=== PATIENT | female | born 1975 | race Caucasian/White ===

== ENCOUNTER → 2018-08-04 16:49 | Outpatient (CLI) | payer BC, SELFPAY ==
[2018-08-04 17:56] LABS: Erythrocyte Sedimentation Rate 3 mm/hr (0-20)
[2018-08-04 18:26] LABS: ALB/GLOB Ratio 1.1 RATIO (0.9-2.4); AST(SGOT) 16 U/L (15-37); Alanine Aminotransfer ALT/SGPT 23 U/L (13-56); Albumin, Serum 4.2 g/dL (3.2-5.0); Alkaline Phosphatase 56 U/L (45-117); Anion Gap 10 (5-15); BUN 16 mg/dL (7-18); BUN/Creat Ratio 16.7 RATIO (10-20); CRP < 2.90 mg/L (0.0-3.0); Calcium,Total 8.6 mg/dL (8.5-10.1); Chloride 104 mmol/L (98-107); Creatinine, Serum 0.96 mg/dL (0.55-1.02); EST Glomerular Filtration Rate 68 mL/min (>60); Est Glom Filt Rate - Afr Amer 82 mL/min (>60); Free T3 2.9 pg/mL (2.18-3.98); Globulin 3.9 g/dL (2.2-4.2); Glucose 86 mg/dL (74-106); Potassium 3.5 mmol/L (3.5-5.1); Protein, Total 8.1 g/dL (6.4-8.2); Rheumatoid Factor < 10.0 IU/mL (<15); Sodium Level 141 mmol/L (136-145); T4 Free Direct 0.96 ng/dL (0.76-1.46); Thyroid Stim Hormone (TSH) 2.61 uIU/mL (0.358-3.74); Vitamin D,25 Hydroxy 12.4 ng/mL (29.95-100.01)
[2018-08-04 18:29] LABS: Microalbumin,Random Urine 14.8 mg/L (NO RANGE EST.); Microalbumin:Creatinine Ratio 6.4 mg/g CRE (<30 mg/g CRE)
[2018-08-06 12:22] LABS: Thyroid Peroxidase AB 33 IU/mL (0-34)
== END ==
PROVIDERS: Family Provider Nurse Practitioner; PCP Nurse Practitioner; Referring Provider Nurse Practitioner; Visit Provider Nurse Practitioner
DX: M06.4 Inflammatory polyarthropathy (principal); R80.9 Proteinuria, unspecified; R53.83 Other fatigue
CPT/HCPCS: 36415; 80053; 82043; 82306; 82570; 84439; 84443; 84481; 85652; 86140; 86376; 86431

== ENCOUNTER → 2018-08-29 14:59 | Outpatient (CLI) | payer BC, SELFPAY ==
--- NOTE | 2018-08-29 15:04 | RAD_ITS ---
HISTORY: Injury in 2017, Pain persists at base of 5th and radiates across top of foot to the other side at times, COMPARISON: None FINDINGS: XR left foot 3 views No fracture, dislocation, or bony abnormality. Joint spaces appear preserved. The plantar arch is maintained. As visualized, soft tissues are negative. No radiopaque foreign body. RAD/Foot min 3 Views IMPRESSION: Normal exam, left foot. at 0515 Reported and signed by: Harjit Brewer MD Electronically Signed: Harjit Brewer, at 5:14 EDT Tel , Service support ,
== END ==
LOC: HPRAD 15:00
PROVIDERS: Family Provider Nurse Practitioner; PCP Nurse Practitioner; Referring Provider Nurse Practitioner; Visit Provider Nurse Practitioner
DX: M79.672 Pain in left foot (principal)
CPT/HCPCS: 73630

== ENCOUNTER → 2018-10-17 16:58 | Outpatient (CLI) | payer BC, SELFPAY ==
--- NOTE | 2018-10-17 17:01 | RAD_ITS ---
STUDY: X-RAY - RIGHT SHOULDER REASON FOR EXAM: Female, 43 years old. Right shoulder pain following performing CPR TECHNIQUE: 4 view(s) of the shoulder. COMPARISON: None. FINDINGS: Normal glenohumeral articulation. There is degenerative arthrosis of the acromioclavicular joint without inferior osseous spur formation. Normal acromion. Normal humeral head and visualized proximal humerus. The soft tissue structures are unremarkable. Normal visualized pulmonary apex. RAD/Shoulder min 2 Views IMPRESSION: No fracture or malalignment. Acromioclavicular joint arthrosis. Electronically Signed: Gerald Brown MD at 23:40 EDT , Service support ,
== END ==
LOC: MTRAD 17:00
PROVIDERS: Family Provider Nurse Practitioner; PCP Nurse Practitioner; Referring Provider Nurse Practitioner; Visit Provider Nurse Practitioner
DX: M25.511 Pain in right shoulder (principal)
CPT/HCPCS: 73030

== ENCOUNTER 2019-01-08 20:45 | Emergency (ER) | payer BC, SELFPAY ==
[2019-01-08 20:46] VITALS: BP 159/89; PULSE 109; RESP 18; TEMP 36.6; O2SAT 99; BMI 32.2
--- NOTE | 2019-01-08 21:39 | RAD_ITS ---
STUDY: X-RAY - RIGHT KNEE REASON FOR EXAM: Female, 43 years old. Post traumatic pain TECHNIQUE: 4 view(s) of the knee. COMPARISON: None. FINDINGS: Normal visualized distal femur. Normal visualized proximal tibia and fibula. Normal proximal tibiofibular articulation. Normal medial femorotibial compartment. Normal lateral femorotibial compartment. Normal patellofemoral articulation. The soft tissue structures are unremarkable. RAD/Knee 4 or More Views IMPRESSION: Normal x-ray examination of the knee. Electronically Signed: Khoi Jenkins MD at 22:10 EDT , Service support ,
--- NOTE | 2019-01-08 21:39 | RAD_ITS ---
STUDY: X-RAY - RIGHT TIBIA AND FIBULA REASON FOR EXAM: Female, 43 years old. Trauma TECHNIQUE: 2 view(s) of the tibia and fibula were obtained. COMPARISON: None. FINDINGS: Normal visualized tibia. Normal visualized fibula. The soft tissue structures are unremarkable. RAD/Tibia & Fibula 2 Views IMPRESSION: Normal x-ray examination of the tibia and fibula. Electronically Signed: Khoi Jenkins MD at 22:11 EDT , Service support ,
--- NOTE | 2019-01-08 21:39 | RAD_ITS ---
STUDY: X-RAY - RIGHT ANKLE REASON FOR EXAM: Female, 43 years old. Posttraumatic pain TECHNIQUE: 3 view(s) of the ankle. COMPARISON: None. FINDINGS: Normal visualized distal tibia and fibula. Normal medial and lateral malleoli. Normal tibiotalar articulation and ankle mortise. Normal visualized talus and calcaneus. The visualized subtalar, talonavicular, calcaneocuboid and tarsal articulations are normal. Soft tissue swelling overlying the lateral malleolus RAD/Ankle min 3 Views IMPRESSION: Lateral malleolus sprain. No evidence for acute fracture or dislocation. Electronically Signed: Khoi Jenkins MD at 22:09 EDT , Service support ,
--- NOTE | 2019-01-08 21:39 | RAD_ITS ---
STUDY: X-RAY - RIGHT FOOT CLINICAL: Female, 43 years old. Trauma TECHNIQUE: 3 view(s) of the foot. COMPARISON: None. FINDINGS: Normal talus, calcaneus, and tarsal bones. Normal visualized subtalar, talonavicular, calcaneocuboid, tarsal and tarsometatarsal articulations. Normal metatarsi. Normal metatarsophalangeal joint of the great toe. Normal tibial and fibular sesamoid bones. Normal interphalangeal joint of the great toe. Normal phalanges of the great toe. Normal second through fifth metatarsophalangeal joints. Normal interphalangeal joints and phalanges of the lesser toes. The soft tissue structures are unremarkable. RAD/Foot min 3 Views IMPRESSION: Normal x-ray examination of the foot. Electronically Signed: Khoi Jenkins MD at 22:31 EDT , Service support ,
--- NOTE | 2019-01-08 21:40 | ED.VISSUMM ---
- ER Visit Summary Date of Service: 01/08/19 Chief Complaint: Fall History of Present Illness: The patient is a 43 F presenting after fall. She states her [place] was chasing a rabbit. The dog ran into her while running. She fell. She did not hit her head or lose consciousness. She complains of pain below her right knee. She was able to ambulate with pain. She has taken Tylenol at home. She denies other complaints. Physical Examination: Vitals are stable. Patient is afebrile. Alert no acute distress. HEENT exam is unremarkable. Neck is nontender Lungs are clear and equal bilaterally. Heart is regular rate and rhythm. Abdomen is soft nontender nondistended. Extremities right lateral ankle tenderness, right lateral foot tenderness, right tib-fib tenderness. Right knee active full range of motion. Quadricep mechanism intact. Normal pulses. Skin is warm and dry. No focal neurologic deficit. Remainder of exam is unremarkable. Emergency Department Course and Treatment: Patient was given [place] x1. X-ray right foot, ankle, tib-fib, knee show no acute process. Patient is given a boot orthosis and crutches. She is advised to ice and elevate. She is given prescription for Naprosyn. Advised to follow up with primary care physician. Advised return to ED for worsening complaints. Disposition: Discharge home Impression: Right ankle sprain This note was generated with [employer] dictation software. It may contain incorrect words, spelling, and punctuation that were not noted in review of the chart prior to signing ED Disposition - Plan for ED Patient: Instructions: Sprain, Ankle, with X-Ray Prescriptions: Naproxen [Naprosyn] 500 mg PO BID PRN #20 tab Prescription Printed Referrals: Megan Moss NP-C [Primary Care Provider] -
--- NOTE | 2019-01-08 22:42 | ED.DEP ---
ED Disposition - Plan for ED Patient: Instructions: Sprain, Ankle, with X-Ray Prescriptions: Naproxen [Naprosyn] 500 mg PO BID PRN #20 tablet Referrals: Megan Moss NP-C [Primary Care Provider] -
[2019-01-08 23:16] VITALS: BP 117/76; PULSE 82; RESP 16; O2SAT 98
== END 2019-01-08 23:19 | disposition home or self-care (01) ==
PROVIDERS: Emergency Provider Emergency Medicine; Family Provider Nurse Practitioner; PCP Nurse Practitioner
DX: S93.401A Sprain of unspecified ligament of right ankle, initial encounter (principal); W54.1XXA Struck by dog, initial encounter; Y93.89 Activity, other specified; Y92.007 Garden or yard of unspecified non-institutional (private) residence as the place of occurrence of the external cause; Y99.8 Other external cause status
CPT/HCPCS: 73564; 73590; 73610; 73630; 99284

== ENCOUNTER → 2019-01-27 | Outpatient (CLI) | payer BC, SELFPAY ==
[2019-01-27 14:08] VITALS: BMI 32.2
--- NOTE | 2019-01-27 14:17 | RAD_ITS ---
STUDY: X-RAY - RIGHT KNEE REASON FOR EXAM: Knee pain, fall last week. TECHNIQUE: 4 view(s) of the knee. COMPARISON: Radiographs 01/08/2019. FINDINGS: Normal visualized distal femur. Normal visualized proximal tibia and fibula. Normal proximal tibiofibular articulation. Normal medial femorotibial compartment. Normal lateral femorotibial compartment. Normal patellofemoral articulation. The soft tissue structures are unremarkable. RAD/Knee 4 or More Views IMPRESSION: Normal x-ray examination of the right knee. Electronically Signed: Jhoan Gonzalez MD at 15:06 EDT Tel , Service support ,
--- NOTE | 2019-01-27 14:17 | RAD_ITS ---
STUDY: X-RAY - RIGHT ANKLE REASON FOR EXAM: Ankle pain. TECHNIQUE: 3 view(s) of the ankle. COMPARISON: Radiographs 01/08/2019. FINDINGS: Normal visualized distal tibia and fibula. There is a small well-defined ossicle at the distal aspect of the medial malleolus as on the prior study. Normal tibiotalar articulation and ankle mortise. Normal visualized talus and calcaneus. The visualized subtalar, talonavicular, calcaneocuboid and tarsal articulations are normal. There is decreased soft tissue swelling overlying the lateral malleolus. RAD/Ankle min 3 Views IMPRESSION: Small ossicle at the distal aspect of the medial malleolus without interval change. Decreased soft tissue swelling. Electronically Signed: Jhoan Gonzalez MD at 15:04 EDT Tel , Service support ,
== END | disposition home or self-care (01) ==
LOC: HPRAD 14:16
PROVIDERS: Family Provider Nurse Practitioner; PCP Nurse Practitioner; Referring Provider Orthopaedic Surgery; Visit Provider Orthopaedic Surgery
DX: S89.91XA Unspecified injury of right lower leg, initial encounter (principal); S99.911A Unspecified injury of right ankle, initial encounter
CPT/HCPCS: 73564; 73610

== ENCOUNTER → 2019-04-02 | Outpatient (CLI) | payer BC, SELFPAY ==
[2019-03-06 14:16] VITALS: BMI 32.2
--- NOTE | 2019-04-02 16:25 | MRI_ITS ---
STUDY: MRI RIGHT KNEE REASON FOR EXAM: Female, 43 years old. c/o lateral R knee pain after twisting injury TECHNIQUE: Standardized fat and water weighted pulse sequences were obtained in all 3 orthogonal planes. COMPARISON: None. FINDINGS: No marrow edema is seen. No occult fracture visualized. No osteochondral defect. Normal medial meniscus. Normal hyaline cartilage of the medial femorotibial compartment. Normal medial femoral condyle and tibial plateau. Normal medial collateral ligamentous complex (MCL). Normal distal semimembranosus, gracilis and semitendinosus tendons. Normal lateral meniscus. Normal hyaline cartilage of the lateral femorotibial compartment. Normal lateral femoral condyle and tibial plateau. Normal proximal tibiofibular articulation. The lateral collateral ligament is moderately thickened and demonstrates some heterogeneous signal without edematous signal indicating remote or old sprain injury without a complete tear. Normal popliteus tendon. Normal biceps femoris tendon. Normal anterior cruciate ligament (ACL). Normal posterior cruciate ligament (PCL). Normal congruent patellofemoral articulation. Normal hyaline cartilage of the patellofemoral compartment. Normal medial and lateral patellar retinaculum. Normal quadriceps tendon. Normal patellar tendon. Normal Hoffa's fat pad. There is no joint effusion. The soft tissues are unremarkable. The otherwise visualized osseous structures are unremarkable. MRI/Lower Ext Joint Only (Routine) IMPRESSION: 1. The lateral collateral ligament is moderately thickened and demonstrates some heterogeneous signal without edematous signal indicating remote or old sprain injury without a complete tear. Electronically Signed: Brenton Motta MD at 23:31 EDT , Service support ,
== END | disposition home or self-care (01) ==
PROVIDERS: Family Provider Nurse Practitioner; PCP Nurse Practitioner; Referring Provider Physician Assistant; Visit Provider Physician Assistant
DX: M25.571 Pain in right ankle and joints of right foot (principal)
CPT/HCPCS: 73721

== ENCOUNTER 2019-06-09 17:02 | Emergency (ER) | payer BC, SELFPAY ==
[2019-04-16 08:10] VITALS: BMI 32.2
[2019-06-09 17:03] VITALS: BP 146/88; PULSE 100; RESP 16; TEMP 36.6; O2SAT 100; BMI 33.6
--- NOTE | 2019-06-09 17:23 | ED.VISSUMM ---
- ER Visit Summary Date of Service: 06/09/19 Chief Complaint: Headache, dizziness, and nausea History of Present Illness: The patient is a 43 F who presents with headache and dizziness that began yesterday when she woke up. Patient states she was feeling off balance. Patient states that when she got to work she started feeling better. Patient states that when she got home last night and woke up today, her symptoms returned. Patient states her symptoms resolved after she left her house. Patient states that she had turned off her heat to conserve her propane and recently turned it back on. Physical Examination: Vital signs are stable. Patient is afebrile. Patient is in no acute distress. Oral mucosa is pink and moist. Neck is supple. Trachea is midline. There is no JVD noted. Heart was regular rate and rhythm. Lungs are clear and equal bilaterally. Abdomen is soft. Bowel sounds are normal. There is no tenderness. There is no rebound or guarding noted. Skin is warm dry. Cranial nerves II through XII are intact. There are no focal motor or sensory deficits noted. Extremities are intact. There is no calf tenderness or edema. Test Results: CBC shows a slight leukocytosis of 12.2. Basic metabolic profile was normal. Carboxyhemoglobin was 1.2. Emergency Department Course and Treatment: Patient was advised of her results. Patient felt better on reevaluation. Patient was advised to have her furnace checked for carbon monoxide in her home. Patient was instructed to follow-up with her primary care physician in 5 to 7 days. Patient and family understood and were agreeable with the plan. All questions were answered. Disposition: Discharge home Impression: 1. Headache 2. Nausea This note was generated with [employer] dictation software. It may contain incorrect words, spelling, and punctuation that were not noted in review of the chart prior to signing ED Disposition - Plan for ED Patient: Disposition: Home or Assisted Living Diagnosis: Headache, Nausea Instructions: HEADACHE, Unspecified Referrals: Megan Moss NP-C [Primary Care Provider] - 5-7 Days
[2019-06-09 17:51] LABS: Absolute Lymphocyte Count 3.78 X10^3/uL (0.83-4.51); Basophil# 0.06 X10^3/uL; Basophil% 0.5 % (0-1); Eosinophil# 0.17 X10^3/uL; Eosinophils% 1.4 % (0-5); Hematocrit 42.2 % (37-47); Lymphocyte # 3.78 X10^3/ul (4.0); Lymphocyte % 30.9 % (19-41); Mean Corp Hgb Conc 33.2 g/dL (32-36); Mean Corpuscular Hgb 28.7 pg (27.0-32.0); Mean Corpuscular Volume 86.7 fL (81-99); Mean Platelet Vol. 9.5 fl (6.2-12.0); Monocyte# 1.25 X10^3/uL; Monocyte% 10.2 % (0-10); NRBC Flagged by Analyzer 0 % (0-5); Neutrophil # 6.95 X10^3/uL (2.7-7.7); Neutrophil % 56.8 % (47-70); Platelet Count 299 K/mm3 (150-450); RBC Distribution Width CV 11.9 % (11.6-14.6); RBC Distribution Width SD 37.6 fl (35.1-43.9); Red Blood Count 4.87 M/mm3 (4.2-5.4); White Blood Count 12.2 K/mm3 (4.4-11.0)
[2019-06-09 18:03] LABS: Anion Gap 7 (5-15); BUN 17 mg/dL (7-18); BUN/Creat Ratio 16.8 RATIO (10-20); Calcium,Total 9.3 mg/dL (8.5-10.1); Chloride 107 mmol/L (98-107); Creatinine, Serum 1.01 mg/dL (0.55-1.02); EST Glomerular Filtration Rate 64 mL/min (>60); Est Glom Filt Rate - Afr Amer 77 mL/min (>60); Estimated Creatinine Clearance 60.02 ml/min; Glucose 87 mg/dL (74-106); Potassium 3.5 mmol/L (3.5-5.1); Sodium Level 141 mmol/L (136-145)
[2019-06-09 18:07] LABS: Carboxyhemoglobin Frac (CO) 1.2 % (0.0-1.5)
--- NOTE | 2019-06-09 18:57 | RAD_ITS ---
STUDY: X-RAY CHEST REASON FOR EXAM: Female, 43 years old. Dizziness. Nausea. TECHNIQUE: Frontal and lateral views of the chest. COMPARISON: None. FINDINGS: The lungs are clear and expanded. There is no demonstrated pleural abnormality. Normal size heart. Normal mediastinum and renee. Normal visualized pulmonary arteries. Normal visualized aortic arch and descending thoracic aorta. Normal visualized thoracic spine. Normal visualized ribs, clavicles, and shoulders. There is no demonstrated abnormality of the visualized soft tissue structures of the upper abdomen. RAD/Chest PA and Lateral IMPRESSION: Normal x-ray examination of the chest. Electronically Signed: Jamin Garcia MD at 19:30 EST , Service support ,
== END 2019-06-09 19:06 | disposition home or self-care (01) ==
PROVIDERS: Emergency Provider Emergency Medicine; Family Provider Nurse Practitioner; PCP Nurse Practitioner
DX: R51 Headache (principal); R11.0 Nausea; R42 Dizziness and giddiness; J02.9 Acute pharyngitis, unspecified; R07.9 Chest pain, unspecified; R05 Cough; M32.9 Systemic lupus erythematosus, unspecified
CPT/HCPCS: 71046; 80048; 82375; 85025; 99283; A4216

== ENCOUNTER 2020-12-08 12:35 | Emergency (ER) | payer BC, SELFPAY ==
[2020-12-08 12:36] VITALS: BP 134/83; PULSE 89; RESP 14; TEMP 36.5; O2SAT 100; BMI 31.2
[2020-12-08 12:49] VITALS: BP 123/75; PULSE 92; RESP 20; O2SAT 100
--- NOTE | 2020-12-08 12:55 | EKG12_ITS ---
Test Reason : PALP Blood Pressure : / mmHG Vent. Rate : 093 BPM Atrial Rate : 093 BPM P-R Int : 158 ms QRS Dur : 090 ms QT Int : 372 ms P-R-T Axes : 062 -07 054 degrees QTc Int : 462 ms Sinus rhythm with occasional Premature ventricular complexes Low voltage QRS Borderline ECG Confirmed by POLO GUILLEN, SUZANNE ([id number]), story editor ECTOR RAMSAY ([id number]) on 12/09/2020 1:08:52 PM Referred By: LINDA Confirmed By:SUZANNE CUELLAR MD
--- NOTE | 2020-12-08 13:02 | EDS_ITS ---
HPI History of Present Illness Chief Complaint: Palpitations Informant: patient Narrative Narrative: Patient is a 45-year-old female with a past medical history of lupus who presents to the emergency department for palpitations. She states that this started around 6 AM this morning. Has been persistent throughout the day. No known aggravating or relieving factors. Whenever the palpitations happen she does feel like it does take her breath away. She denies any associated chest pain. She denies any recent illness including any cough, cold, congestion. No fevers or chills. She has not been nauseous or vomiting. No diarrhea. She denies any urinary symptoms. She denies any chance of being does have a history of tubal ligation. She denies any leg swelling or calf pain. She does feel her legs are heavy bilaterally. No history of any this before in the past. She does have a family history of cardiac disease so her PCP referred her to the emergency department today. PFSH PFS Home Medications NK 06/09/19 [History Last Taken Unknown] Allergy/AdvReac Type Severity Reaction Status Date / Time Iodinated Contrast Media Allergy Itching Verified 12/08/20 12:38 [DYEE] Social History Smoking Status: Never smoker ROS ROS ED Constitutional Constitutional ED: Denies chills or fever(s) Eyes Eyes: Denies change in vision ENT ENT ED: Denies epistaxis or rhinorrhea Cardiovascular Cardiovascular: Reports palpitations; Denies chest pain Respiratory/Chest Respiratory/Chest: Denies cough or dyspnea on exertion Gastrointestinal Gastrointestinal: Denies abdominal pain, diarrhea, nausea or vomiting Genitourinary Genitourinary ED: Denies dysuria, hematuria or urinary frequency Musculoskeletal Musculoskeletal: Denies back pain or neck pain Integumentary Denies rash Neurologic Neurologic: Denies dizziness, headache(s) or weakness EXAM Physical Exam Const Vital Signs: 12/08/20 12:36 12/08/20 12:49 Temperature 97.7 F L Temperature Source Temporal Pulse Rate 89 92 Respiratory Rate 14 20 H Blood Pressure 134/83 H 123/75 H Blood Pressure Mean 100 91 Pulse Ox 100 100 Oxygen Delivery Method Room Air Room Air Positive well nourished and well developed General Appearance ED: well developed and NAD HEENT Reports normocephalic, head/scalp atraumatic and moist mucous membranes Eyes PERRL and EOMs intact bilaterally Neck supple Chest Wall inspection of chest normal Resp normal respiratory effort and clear to auscultation bilaterally Auscultation: Negative for rales, rhonchi or wheezes Cardio regular rate and no murmurs Rate: other Other Details: Regular rate with occasional premature beat. GI normal to inspection, nondistended, normoactive bowel sounds and non-tender Palpation: soft; Negative for guarding or rebound tenderness present Extremity normal to inspection General Extremety ED: Negative for edema or tenderness General Extremity: Negative for edema Neuro CN's II-XII intact bilaterally and no sensory deficits noted Sensorium / Orientation: alert Motor Exam: strength 5/5 throughout Psych mental status grossly normal Skin no rashes or lesions noted MDM MDM MDM Narrative Medical decision making narrative: Patient presents the ED for palpitations. Upon arrival to the emerge department vital signs within normal limits. She is in no acute distress. 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 She is symptomatic with this. EKG obtained which did confirm this. Will check basic lab work at this time. Patient's lab work-up did not reveal any significant acute abnormality. She is not anemic. Her electrolytes are within normal limits. Her troponin is normal. She has remained stable throughout ED stay. At this time I feel she is stable for discharge. Recommend she follow-up with cardiology if she remains symptomatic with the PVCs. Return precautions are reviewed with her including significant shortness of breath, chest pain. She understands and is agreeable to plan. All questions were answered. Lab Data Labs: Laboratory Results - last 24 hr 12/08/20 12/08/20 13:15 13:15 WBC 9.5 RBC 4.37 Hgb 12.6 Hct 38.1 MCV 87.2 MCH 28.8 MCHC 33.1 RDW Std Deviation 38.5 RDW Coeff of Susan 11.9 Plt Count 266 MPV 9.8 Immature Gran % (Auto) 0.200 Neut % (Auto) 58.5 Lymph % (Auto) 29.3 Ritchie % (Auto) 9.9 Eos % (Auto) 1.6 Baso % (Auto) 0.5 Absolute Neuts (auto) 5.6 Absolute Lymphs (auto) 2.78 Nucleated RBC % 0 Sodium 140 Potassium 3.5 Chloride 107 Carbon Dioxide 31.0 Anion Gap 2 L BUN 15 Creatinine 0.93 Estim Creat Clear Calc 63.86 Est GFR (MDRD) Af Amer 84 Est GFR (MDRD) Non-Af 70 BUN/Creatinine Ratio 16.2 Glucose 103 Calcium 8.5 Magnesium 2.1 Total Bilirubin 0.60 AST 12 L ALT 16 Alkaline Phosphatase 48 Troponin I High Sens 4.3 Total Protein 7.0 Albumin 3.6 Globulin 3.4 Albumin/Globulin Ratio 1.1 EKG Initial EKG: Attestation: I personally reviewed and interpreted this EKG as follows: (Rate of 93 bpm normal sinus rhythm. 2 PVCs present. Otherwise normal intervals. Normal axis. No significant ST elevations or depressions. No T wave abnormalities.) Discharge Plan Triage Chief Complaint: Palpitations ED Provider: Quincy Marroquin Dx/Rx/DC Orders Clinical Impression: Multiple premature ventricular complexes, Heart palpitations Instructions: PVCs Prescriptions: No Action NK RF: 0 Primary Care Provider: Megan Moss NP Referrals: Negrito Cifuentes MD [STAFF PHYSICIAN] - 3-5 Days if not improving Megan Moss NP, PUMP SERVICER-C [Primary Care Provider] - Disposition Disposition: Home, Self Care
[2020-12-08 13:20] LABS: Absolute Lymphocyte Count 2.78 X10^3/uL (0.83-4.51); Absolute Neutrophil Count 5.6 X10^3/uL (2.0-7.7); Basophil# 0.05 X10^3/uL; Basophil% 0.5 % (0-1); Eosinophil# 0.15 X10^3/uL; Eosinophils% 1.6 % (0-5); Hematocrit 38.1 % (37-47); Hemoglobin 12.6 g/dL (12.0-15.0); Lymphocyte # 2.78 X10^3/ul (0.83-4.51); Lymphocyte % 29.3 % (19-41); Mean Corp Hgb Conc 33.1 g/dL (32-36); Mean Corpuscular Hgb 28.8 pg (27.0-32.0); Mean Corpuscular Volume 87.2 fL (81-99); Mean Platelet Vol. 9.8 fl (6.2-12.0); Monocyte# 0.94 X10^3/uL; Monocyte% 9.9 % (0-10); NRBC Flagged by Analyzer 0 % (0-5); Neutrophil # 5.56 X10^3/uL (2.7-7.7); Neutrophil % 58.5 % (47-70); Platelet Count 266 K/mm3 (150-450); RBC Distribution Width CV 11.9 % (11.6-14.6); RBC Distribution Width SD 38.5 fl (35.1-43.9); Red Blood Count 4.37 M/mm3 (4.2-5.4); White Blood Count 9.5 K/mm3 (4.4-11.0)
[2020-12-08 13:39] LABS: ALB/GLOB Ratio 1.1 RATIO (0.9-2.4); AST(SGOT) 12 U/L (15-37); Alanine Aminotransfer ALT/SGPT 16 U/L (13-56); Albumin, Serum 3.6 g/dL (3.2-5.0); Alkaline Phosphatase 48 U/L (45-117); Anion Gap 2 (5-15); BUN 15 mg/dL (7-18); BUN/Creat Ratio 16.2 RATIO (10-20); Calcium,Total 8.5 mg/dL (8.5-10.1); Chloride 107 mmol/L (98-107); Creatinine, Serum 0.93 mg/dL (0.55-1.02); EST Glomerular Filtration Rate 70 mL/min (>60); Est Glom Filt Rate - Afr Amer 84 mL/min (>60); Estimated Creatinine Clearance 63.86 ml/min; Globulin 3.4 g/dL (2.2-4.2); Glucose 103 mg/dL (74-106); Magnesium 2.1 mg/dL (1.6-2.6); Potassium 3.5 mmol/L (3.5-5.1); Sodium Level 140 mmol/L (136-145); Troponin-I HS 4.3 pg/mL (3.0-53.7)
[2020-12-08 14:36] VITALS: BP 122/71; PULSE 81; RESP 20; O2SAT 98
[2020-12-08 14:38] VITALS: BP 122/71; PULSE 82; RESP 17; O2SAT 98
== END 2020-12-08 14:49 | disposition home or self-care (01) ==
PROVIDERS: Emergency Provider Emergency Medicine; PCP Nurse Practitioner
DX: I49.3 Ventricular premature depolarization (principal); R00.2 Palpitations
CPT/HCPCS: 80053; 83735; 84484; 85025; 93005; 99284; A4216

== ENCOUNTER → 2020-12-22 12:01 | Outpatient (CLI) | payer BC, SELFPAY ==
[2020-12-08 12:36] VITALS: BMI 31.2
== END ==
LOC: PSN 12:02
PROVIDERS: PCP Nurse Practitioner; Referring Provider Nurse Practitioner; Visit Provider Nurse Practitioner
DX: R00.2 Palpitations (principal)
CPT/HCPCS: 93225; 93226

== ENCOUNTER 2020-12-25 12:01 | Emergency (ER) | payer BC, SELFPAY ==
[2020-12-25 12:05] VITALS: BP 114/70; PULSE 86; RESP 18; TEMP 36.3; O2SAT 98; BMI 30.9
[2020-12-25 12:12] VITALS: BP 118/69; PULSE 79; RESP 15; O2SAT 100
--- NOTE | 2020-12-25 12:46 | CT_ITS ---
EXAM: CT HEAD WITHOUT INTRAVENOUS CONTRAST CLINICAL INDICATION: Dizziness TECHNIQUE: Multiple axial images were obtained of the head without intravenous contrast. This CT exam was performed using one or more of the following dose reduction techniques: automated exposure control, adjustment of the mA and/or kV according to patient size, and/or use of iterative reconstruction technique. This report was created using [employer] report ON24 technology. COMPARISON: None. FINDINGS: BRAIN AND EXTRA-AXIAL SPACES: Unremarkable. No intra- or extra-axial hemorrhage. No evidence of acute infarct. No intracranial mass or mass effect. There is preservation of the jain/white matter interface. Posterior fossa structures are unremarkable. Ventricles are appropriate for age. No hydrocephalus. Basal cisterns are patent. BONES/JOINTS: Unremarkable. No discrete lytic or blastic abnormalities. SINUSES: Unremarkable as visualized. Clear. MASTOID AIR CELLS: Unremarkable. Clear. ORBITS: Visualized globes, extraocular muscles, optic nerves and retrobulbar fat appear unremarkable. CT/Brain/Head without Contrast IMPRESSION: Normal head/brain CT without intravenous contrast. Electronically Signed: Shashank Ryder MD at 13:55 EDT , Service support ,
--- NOTE | 2020-12-25 12:47 | EKG12_ITS ---
Test Reason : DIZZINESS Blood Pressure : / mmHG Vent. Rate : 080 BPM Atrial Rate : 080 BPM P-R Int : 162 ms QRS Dur : 092 ms QT Int : 406 ms P-R-T Axes : 051 -05 038 degrees QTc Int : 468 ms Normal sinus rhythm Normal ECG When compared with ECG of 08-DEC-2020 12:55, Premature ventricular complexes are no longer Present Confirmed by POLO GUILLEN, SUZANNE ([id number]), supervising editor news reel ECTOR RAMSAY ([id number]) on 12/30/2020 10:33:23 AM Referred By: CRISTIANO/CHIP Confirmed By:SUZANNE CUELLAR MD
--- NOTE | 2020-12-25 12:49 | EX.ED.DYSGE1 ---
HPI History of Present Illness Chief Complaint: Dizziness Informant: patient Narrative Narrative: Patient presents with dizziness. She states she woke up this morning and went to the bathroom. She felt a sense of spinning and motion. When the spinning was bad she actually vomited. She does not have a headache. She has no recent trauma or injury. She does not have a history of recurrent vertigo or dizziness. She has no focal numbness tingling or weakness. No trouble with speech or understanding or vision. Motion makes it worse and staying still makes it better. She was outside yesterday. She did have a Jell-O shot in the evening but did not feel any symptoms after this. All of her symptoms started this morning. She does have a history of intermittent palpitations but is not having those with this episode. [facility] Medical History Lupus Home Medications meclizine 25 mg PO TID PRN #20 tab 12/25/20 [Rx Last Taken Unknown] ondansetron HCl [Zofran] 4 mg PO Q8H PRN #10 tab 12/25/20 [Rx Last Taken Unknown] Allergy/AdvReac Type Severity Reaction Status Date / Time Iodinated Contrast Media Allergy Itching Verified 12/25/20 12:06 [DYEE] Social History Smoking Status: Never smoker ROS ROS ED Constitutional Constitutional ED: Denies chills or fever(s) Eyes Eyes: Denies blurry vision, change in vision or diplopia ENT ENT ED: Denies rhinorrhea Cardiovascular Cardiovascular: Denies chest pain or palpitations Respiratory/Chest Respiratory/Chest: Denies cough or dyspnea Gastrointestinal Gastrointestinal: Denies abdominal pain, nausea or vomiting Genitourinary Genitourinary ED: Denies dysuria Musculoskeletal Musculoskeletal: Denies arthralgias, back pain, myalgias or neck pain Integumentary Denies rash Neurologic Neurologic: Denies headache(s), paresthesias or weakness Psychiatric Psychiatric: Denies anxiety or depression Endocrine Endocrinology: Denies polydipsia or polyuria Allergic/Immunologic Allergic/Immunologic ED: Denies urticaria EXAM Physical Exam Const Vital Signs: 12/25/20 12:05 12/25/20 12:12 12/25/20 15:00 Temperature 97.3 F L Temperature Source Temporal Pulse Rate 86 79 78 Respiratory Rate 18 15 15 Blood Pressure 114/70 118/69 120/79 Blood Pressure Mean 84 85 92 Pulse Ox 98 100 99 Oxygen Delivery Method Room Air Room Air Positive well nourished and well developed; Negative for unkempt General Appearance ED: well developed; Negative for unkempt or diaphoretic HEENT Reports TM's clear and dry mucous membranes Negative for trauma Tympanic Membrane ED: Yes TM's clear Mouth ED: Yes dry mucous membranes Mouth: dry mucous membranes Eyes PERRL and EOMs intact bilaterally Eyes Narrative: Patient does have a somewhat positive Hallpike. She will get some slight horizontal nystagmus and symptomatology. This seem to be more looking to the right than the left. Neck no lymphadenopathy and supple Chest Wall inspection of chest normal Resp normal respiratory effort and clear to auscultation bilaterally Auscultation: Negative for wheezes Cardio regular rate and regular rhythm GI normal to inspection, nondistended, normoactive bowel sounds and non-tender Palpation: soft Back/Spine no CVA tenderness Extremity normal to inspection General Extremety ED: Negative for edema or tenderness General Extremity: Negative for edema Neuro oriented x3 Sensorium / Orientation: alert Psych mental status grossly normal Appearance: Negative for unkempt Skin no rashes or lesions noted MDM MDM MDM Narrative Medical decision making narrative: Patient did vomit once with motion and dizziness. However, she states the dizziness is much better now. It is not completely gone though. If she stays still she is not having symptoms. She is not nauseated now. I will give her Zofran also to help for the intermittent nausea. I will also give her a dose of Valium. Patient's blood work shows minimally elevated white count. Electrolytes show no marked abnormalities. is negative. CT scan of the head is negative. Patient symptoms and exam are most consistent with a positional vertigo. There is no symptoms or findings consistent of stroke. There is no discoordination. Plan will be to get her home. We will start Antivert. I will write for as few Zofran if needed. If she is having worsening symptoms or headache fevers or other concerns she should return. She will call her primary physician in the morning for follow-up. Lab Data Attestation: I reviewed the patient's lab results. Labs: Laboratory Results - last 24 hr 12/25/20 12/25/20 12/25/20 13:10 13:10 13:10 WBC 13.5 H RBC 4.61 Hgb 13.1 Hct 39.8 MCV 86.3 MCH 28.4 MCHC 32.9 RDW Std Deviation 38.0 RDW Coeff of Susan 11.9 Plt Count 289 MPV 9.7 Immature Gran % (Auto) 0.400 Neut % (Auto) 80.7 H Lymph % (Auto) 10.4 L [place] % (Auto) 7.8 Eos % (Auto) 0.3 Baso % (Auto) 0.4 Absolute Neuts (auto) 10.9 H Absolute Lymphs (auto) 1.40 Nucleated RBC % 0 Sodium 140 Potassium 3.7 Chloride 108 H Carbon Dioxide 26.0 Anion Gap 6 BUN 17 Creatinine 0.88 Estim Creat Clear Calc 70.45 Est GFR (MDRD) Af Amer 90 Est GFR (MDRD) Non-Af 74 BUN/Creatinine Ratio 19.3 Glucose 102 Calcium 8.5 Serum , Qual NEGATIVE Radiography Diagnostic Testing: Radiology Impression Brain CT 12/25/20 12:46 IMPRESSION: Normal head/brain CT without intravenous contrast. Electronically Signed: Shashank Ryder MD at 13:55 EDT , Service support , Discharge Plan Triage Chief Complaint: Dizziness ED Provider: Mariano Carballo Dx/Rx/DC Orders Clinical Impression: Positional vertigo Instructions: ED BPV Vertigo Prescriptions: New ondansetron HCl [Zofran] 4 mg tablet 4 mg PO Q8H PRN (Reason: nausea and vomiting) Qty: 10 RF: 0 meclizine 25 mg tablet 25 mg PO TID PRN (Reason: dizziness) Qty: 20 RF: 0 Primary Care Provider: Megan Moss NP Referrals: Megan Moss NP, [facility] [Primary Care Provider] - 2 Days Disposition Disposition: Home, Self Care
[2020-12-25] MEDS: Meclizine HCl 25 MG Tablet PO (13:18)
[2020-12-25 13:23] LABS: Absolute Neutrophil Count 10.9 X10^3/uL (2.0-7.7); Basophil# 0.05 X10^3/uL; Basophil% 0.4 % (0-1); Eosinophil# 0.04 X10^3/uL; Eosinophils% 0.3 % (0-5); Hematocrit 39.8 % (37-47); Hemoglobin 13.1 g/dL (12.0-15.0); Lymphocyte % 10.4 % (19-41); Mean Corp Hgb Conc 32.9 g/dL (32-36); Mean Corpuscular Hgb 28.4 pg (27.0-32.0); Mean Corpuscular Volume 86.3 fL (81-99); Mean Platelet Vol. 9.7 fl (6.2-12.0); Monocyte# 1.05 X10^3/uL; Monocyte% 7.8 % (0-10); NRBC Flagged by Analyzer 0 % (0-5); Neutrophil # 10.88 X10^3/uL (2.7-7.7); Neutrophil % 80.7 % (47-70); Platelet Count 289 K/mm3 (150-450); RBC Distribution Width CV 11.9 % (11.6-14.6); Red Blood Count 4.61 M/mm3 (4.2-5.4); White Blood Count 13.5 K/mm3 (4.4-11.0)
[2020-12-25 13:34] LABS: Anion Gap 6 (5-15); BUN 17 mg/dL (7-18); BUN/Creat Ratio 19.3 RATIO (10-20); Calcium,Total 8.5 mg/dL (8.5-10.1); Chloride 108 mmol/L (98-107); Creatinine, Serum 0.88 mg/dL (0.55-1.02); EST Glomerular Filtration Rate 74 mL/min (>60); Est Glom Filt Rate - Afr Amer 90 mL/min (>60); Estimated Creatinine Clearance 70.45 ml/min; Glucose 102 mg/dL (74-106); Potassium 3.7 mmol/L (3.5-5.1); Sodium Level 140 mmol/L (136-145)
[2020-12-25 13:56] LABS: Internal QC Validated? YES +Cl - CLEAR BKGD; Pregnancy, Serum, hCG Quali. NEGATIVE Negative
[2020-12-25 15:00] VITALS: BP 120/79; PULSE 78; RESP 15; O2SAT 99
[2020-12-25] MEDS: Ondansetron ODT 4 MG Tablet PO (15:40)
[2020-12-25] MEDS: diazePAM 5 MG Tablet PO (15:41)
[2020-12-25 15:45] VITALS: BP 121/75; PULSE 65; RESP 16; O2SAT 95
== END 2020-12-25 15:47 | disposition home or self-care (01) ==
PROVIDERS: Emergency Provider Emergency Medicine; PCP Nurse Practitioner
DX: H81.10 Benign paroxysmal vertigo, unspecified ear (principal)
CPT/HCPCS: 70450; 80048; 84703; 85025; 93005; 96360; 99283; J7030

== ENCOUNTER → 2021-03-02 11:52 | Outpatient (CLI) | payer OTHER, SELFPAY ==
--- NOTE | 2021-03-02 11:58 | ECHOD_ITS ---
Reason For Study: Arrhythmia Procedure This was a 2D Doppler, Color Flow transthoracic echocardiogram. The exam was of adequate technical quality. Exam performed in department. Left Ventricle Normal LV size. Left ventricular systolic function is normal. The estimated ejection fraction is 70 %. No evidence for diastolic dysfunction. No regional wall motion abnormalities noted. Right Ventricle Normal RV size. Normal systolic function. Atria Normal left atrium. Normal right atrium. Agitated saline contrast study considered faintly positive for right to left interatrial shunt compatible with a small PFO versus ASD. Mitral Valve There is no mitral annular calcification. Normal mitral valve. Tricuspid Valve Normal tricuspid valve. Trivial tricuspid valve insufficiency. Right ventricular systolic pressure estimated to be 17 mmHg. Aortic Valve Trisinus/trileaflet aortic valve. Normal aortic valve. Pulmonic Valve The pulmonic valve is not well visualized. Great Vessels Normal sized aortic root. Pericardium/Pleural No pericardial effusion. Medication 22 gauge I.V. with prn adaptor inserted into left arm. Performed a rapid injection of agitated mix of 9 cc saline and 1cc air to assess for atrial septal defect. MMode/2D Measurements & Calculations LVIDd: 4.2 cm IVSd: 0.88 cm Ao root diam: 2.8 cm LVIDs: 2.1 cm LVPWd: 0.85 cm RVDd: 3.2 cm FS: 49.1 % LAV(MOD-bp): 31.6 ml LVAd ap4: 25.0 cm2 LVAd ap2: 26.3 cm2 LAV(MOD-bp) Indexed: 17.0 ml/m2 LVLd ap4: 7.9 cm LVLd ap2: 7.9 cm LAV(MOD-sp2): 29.7 ml EDV(MOD-sp4): 65.5 ml EDV(MOD-sp2): 72.9 ml LAV(MOD-sp4): 31.6 ml EDV(sp4-el): 67.3 ml EDV(sp2-el): 74.5 ml LVAs ap4: 12.2 cm2 LVAs ap2: 15.2 cm2 LVLs ap4: 6.8 cm LVLs ap2: 6.9 cm ESV(MOD-sp4): 19.8 ml ESV(MOD-sp2): 29.5 ml ESV(sp4-el): 18.6 ml ESV(sp2-el): 28.3 ml EF(MOD-sp4): 69.7 % EF(MOD-sp2): 59.5 % EF(sp4-el): 72.4 % SV(MOD-sp4): 45.6 ml SV(MOD-sp2): 43.4 ml SV(sp4-el): 48.7 ml LA A4 area: 13.5 cm2 LA dimension(2D): 3.0 cm RA A4 area: 11.7 cm2 Doppler Measurements & Calculations MV E max niall: 73.2 cm/sec Lat Peak E' Niall: 10.8 cm/sec Med Peak E' Niall: 11.3 cm/sec MV A max niall: 70.9 cm/sec E/E' lat: 6.8 E/E' med: 6.5 MV E/A: 1.0 Ao V2 max: 164.2 cm/sec LV V1 max: 118.0 cm/sec PA V2 max: 120.5 cm/sec Ao max P.8 mmHg LV V1 max P.6 mmHg TR max niall: 185.6 cm/sec TR max P.8 mmHg ECHO/Echo Complete Interpretation Summary Left ventricular systolic function is normal. The estimated ejection fraction is 70 %. Trivial tricuspid valve insufficiency. Right ventricular systolic pressure estimated to be 17 mmHg. No evidence for diastolic dysfunction. Agitated saline contrast study considered faintly positive for right to left in teratrial shunt compatible with a small PFO versus ASD. Ordering Physician: Juan F Denise Referring Physician: Megan Moss Performed By: Bárbara Duggan RDCS
--- NOTE | 2021-03-02 19:11 | STRESSREP ---
Stress Test Report Date: 03-02-2021 Procedure: Exercise tolerance test Indications: Palpitations; ventricular ectopy; fatigue; COVID-19 Consent: Per the patient Procedure: The patient exercised on a Tucker protocol for 9 minutes and 47 seconds completing Stage III and 47 seconds of Stage IV achieving a peak heart rate of 184 bpm (104% predicted maximal heart rate) with a peak blood pressure 140/80 mmHg and a peak MET capacity of approximately 12 MET's. The baseline ECG demonstrated normal sinus rhythm. The peak exercise ECG demonstrated no obvious ECG changes. There was a rare PVC near peak exercise. The functional capacity was considered good. The patient had no complaint of chest discomfort during exercise or recovery. The examination was discontinued secondary to dyspnea. Impression: 1. Technically adequate (percent predicted maximal heart rate greater than 85%) exercise tolerance test 2. Peak exercise ECG with no obvious ECG changes 3. There was a rare PVC near peak exercise This note was generated with [employer] software. It may contain incorrect words, spelling, and punctuation that were not noted in checking the note before signing.
== END ==
PROVIDERS: PCP Nurse Practitioner; Referring Provider Internal Medicine Cardiovascular Disease; Visit Provider Internal Medicine Cardiovascular Disease
DX: R00.2 Palpitations (principal); I49.3 Ventricular premature depolarization; R53.83 Other fatigue
CPT/HCPCS: 93017; 93306; A4216; J3490

== ENCOUNTER 2021-08-30 16:07 | Outpatient (CLI) | payer OTHER, SELFPAY ==
[2021-08-30 17:52] LABS: Hematocrit 39.3 % (37-47); Hemoglobin 12.9 g/dL (12.0-15.0); Mean Corp Hgb Conc 32.8 g/dL (32-36); Mean Corpuscular Hgb 28.5 pg (27.0-32.0); Mean Corpuscular Volume 86.8 fL (81-99); Mean Platelet Vol. 10.1 fl (6.2-12.0); Platelet Count 325 K/mm3 (150-450); RBC Distribution Width CV 12.4 % (11.6-14.6); RBC Distribution Width SD 39.2 fl (35.1-43.9); Red Blood Count 4.53 M/mm3 (4.2-5.4); White Blood Count 10.5 K/mm3 (4.4-11.0)
[2021-08-30 17:57] LABS: Erythrocyte Sedimentation Rate 7 mm/hr (0-30)
[2021-08-30 18:17] LABS: Vitamin B12 563 pg/mL (211-911)
[2021-08-30 18:20] LABS: ALB/GLOB Ratio 1.1 RATIO (0.9-2.4); AST(SGOT) 27 U/L (15-37); Alanine Aminotransfer ALT/SGPT 41 U/L (13-56); Albumin, Serum 4.1 g/dL (3.2-5.0); Alkaline Phosphatase 49 U/L (45-117); Anion Gap 6 (5-15); BUN 23 mg/dL (7-18); Calcium,Total 9.4 mg/dL (8.5-10.1); Chloride 103 mmol/L (98-107); EST Glomerular Filtration Rate 64 mL/min (>60); Est Glom Filt Rate - Afr Amer 77 mL/min (>60); Globulin 3.7 g/dL (2.2-4.2); Glucose 89 mg/dL (74-106); Potassium 3.5 mmol/L (3.5-5.1); Protein, Total 7.8 g/dL (6.4-8.2); Sodium Level 137 mmol/L (136-145); Thyroid Stim Hormone (TSH) 1.66 uIU/mL (0.358-3.74)
[2021-08-30 18:25] LABS: Hemoglobin A1c 5.1 % (3.8-5.6)
[2021-09-01 15:46] LABS: ANTINUCLEAR ANTIBODIES DIRECT Positive (Negative)
[2021-09-04 12:08] LABS: PROEL- A/G Ratio 1.2 (0.7-1.7); PROEL- Albumin 3.9 g/dL (2.9-4.4); PROEL- Alpha-1 Globulin 0.2 g/dL (0.0-0.4); PROEL- Alpha-2 Globulin 0.7 g/dL (0.4-1.0); PROEL- Beta Globulin 1.1 g/dL (0.7-1.3); PROEL- Gamma Globulin 1.3 g/dL (0.4-1.8); PROEL- Globulin, Total 3.3 g/dL (2.2-3.9); PROEL- TOTAL PROTEIN 7.2 g/dL (6.0-8.5)
[2021-09-04 15:57] LABS: Arsenic 7245 2 ug/L (0-9); Lead, Blood < 1 ug/dL (0-4); Mercury, Blood 85324 < 1.0 ug/L (0.0-14.9)
== END 2021-08-30 23:59 | disposition home or self-care (01) ==
LOC: MTLAB 16:08
PROVIDERS: PCP Nurse Practitioner; Referring Provider Nurse Practitioner; Visit Provider Nurse Practitioner
DX: R20.2 Paresthesia of skin (principal)
CPT/HCPCS: 36415; 80053; 82175; 82607; 83036; 83655; 83825; 84165; 84443; 85027; 85652; 86038

== ENCOUNTER 2021-09-21 11:40 | Emergency (ER) | payer OTHER, SELFPAY ==
[2021-09-21 11:41] VITALS: BP 121/90; PULSE 102; RESP 16; TEMP 36.2; O2SAT 100; BMI 32.4
--- NOTE | 2021-09-21 11:48 | EKG12_ITS ---
Test Reason : PALPATATIONS Blood Pressure : / mmHG Vent. Rate : 098 BPM Atrial Rate : 098 BPM P-R Int : 122 ms QRS Dur : 082 ms QT Int : 354 ms P-R-T Axes : 056 -47 050 degrees QTc Int : 451 ms Normal sinus rhythm Left axis deviation Abnormal ECG Confirmed by GRAEME GUILLEN, DAVID ([id number]), news video editor ECTOR RAMSAY ([id number]) on 09/25/2021 1:48:19 PM Referred By: KEYLA/BRADY Confirmed By:RILEY BEDOLLA MD
--- NOTE | 2021-09-21 11:58 | EX.ED.DYSGE1 ---
HPI <CLEMENTE Pride - Last Filed: 09/21/21 12:33> History of Present Illness Chief Complaint: Palpitations Narrative Narrative: 46-year-old female with history of lupus presents the [facility] apartment for palpitations. Patient states he has been having these episodes off and on for the last year. She does see a machine package sealer, she has had Holter monitors in the past. Patient states what is different today is that yesterday she had them all day long, this increased her anxiety, she did call her doctor told her to come to the ER for further evaluation. Patient denies actual chest pain, patient does state that she feels anxious, and kind of fuzzy. Patient denies any fevers chills nausea vomiting. Denies any shortness of breath, swelling to her lower extremities, history of DVT or PE. PFSH <CLEMENTE Pride - Last Filed: 09/21/21 12:33> PFSH Medical History COVID-19 (07/2020) GERD (gastroesophageal reflux disease) IBS (irritable bowel syndrome) Lupus Ventricular ectopy Allergy/AdvReac Type Severity Reaction Status Date / Time Iodinated Contrast Media Allergy Itching Verified 09/21/21 11:43 [DYEE] Family History Mother Myocardial infarction, Onset Age: 72 Heart disease Grandfather Myocardial infarction, Onset Age: 55 Heart disease Uncle Myocardial infarction, Onset Age: 40 Heart disease Aunt Heart disease afib Brother CAD (coronary artery disease), Onset Age: 52 CABG Other Cancer Diabetes Hypertension Surgical History History of tonsillectomy Social History Smoking Status: Never smoker alcohol intake: never substance use type: does not use caffeine: Yes (1x week) ROS <CLEMENTE Pride - Last Filed: 09/21/21 12:33> ROS ED ROS Narrative Constitutional: Negative for fever, chills, weight loss, weakness. Positive for feeling of fuzzy Eyes: Negative for vision loss, vision change, double vision ENT: Negative for any sore throat, ear pain, congestion Cardiovascular: Negative for any chest pain, tightness, racing heartbeat. Positive palpitations Respiratory: Negative for any cough, sputum production, hemoptysis, shortness of breath, shortness of breath on exertion, orthopnea Gastrointestinal: Negative for any abdominal pain, nausea, vomiting, diarrhea, constipation, blood in stool, blood in vomit : Negative for any urinary frequency, incontinence, dysuria, retention, blood in urine Muscle skeletal: Negative for any muscle joint pain, stiffness, myalgias, arthralgias, neck pain, back pain Neurological: Negative for any headache, dizziness, syncope, numbness or tingling Skin: Negative for any rashes, lumps, itching, abrasions, lacerations Psychiatric: Negative for any depression, anxiety, stress, suicidal ideation, homicidal ideation Hematologic: Negative for any easy bruising, excessive bruising, easy bleeding Allergies: Negative for any eczema, hives, rash EXAM <CLEMENTE Pride - Last Filed: 09/21/21 12:33> Physical Exam Narrative Exam Narrative: Vital signs reviewed. Patient's vital signs are stable. Patient appears to be no distress HEET: Head normocephalic atraumatic, TMs clear bilaterally. Posterior pharynx is clear, moist mucous membranes. Nares clear bilaterally. Neck: Supple with no lymphadenopathy or tenderness. No signs of meningismus, negative jolt sign. Cardiac: Regular rate and rhythm no murmurs gallops or rubs, equal peripheral pulses bilaterally. Respiratory: Lungs clear to auscultation bilaterally. No chest tenderness. Abdomen: Soft, nontender, nondistended. No abdominal bruit or pulsatile masses. No hepatosplenomegaly Extremities: No peripheral edema, no signs of gross trauma or deformity. Active full range of motion of all extremities. Neuro: Cranial nerves II through XII intact, no focal neurological deficits. Skin: Clean dry and intact with no rash, purpura, petechiae, vesicles or pustules. Backslash flank: No CVA tenderness, no midline spinal tenderness, no deformity. Psych: Normal mood and affect. No SI, HI or acute psychosis. Const Vital Signs: 09/21/21 11:41 Temperature 97.2 F L Temperature Source Temporal Pulse Rate 102 H Respiratory Rate 16 Blood Pressure 121/90 H Blood Pressure Mean 100 Pulse Ox 100 Oxygen Delivery Method Room Air <Dr. Arian Reyes MD - Last Filed: 09/21/21 12:34> Physical Exam Const Vital Signs: 09/21/21 11:41 Temperature 97.2 F L Temperature Source Temporal Pulse Rate 102 H Respiratory Rate 16 Blood Pressure 121/90 H Blood Pressure Mean 100 Pulse Ox 100 Oxygen Delivery Method Room Air MDM <Juan F CostaCLEMENTE - Last Filed: 09/21/21 12:33> [facility] Narrative Medical decision making narrative: Patient appears well, patient appears nontoxic, vital signs are stable. Patient presents to the emergency department with 2 days of palpitations, due to the palpitations being worse and more consistent yesterday she is here for evaluation. This patient has had multiple evaluations by a machine package sealer, patient had a negative stress test, patient had cardiac monitors etc. At this time, patient's EKG was unremarkable, there is no evidence of an acute CAD, NC. Patient did receive basic laboratory values, patient's electrolytes were grossly unremarkable, patient CBC was unremarkable. We did speak with the patient's machine package sealer, we came to agreement, as well as using shared decision making, the patient be placed on an event cardio monitor for 30 days. If she continues to have these events she is able to trigger the event monitor. At this time, the patient is happy with the plan of care and is stable for discharge Lab Data Labs: Laboratory Results - last 24 hr 09/21/21 09/21/21 12:00 12:00 WBC 8.9 RBC 5.05 Hgb 14.5 Hct 43.7 MCV 86.5 MCH 28.7 MCHC 33.2 RDW Std Deviation 37.8 RDW Coeff of Susan 11.9 Plt Count 322 MPV 9.7 Immature Gran % (Auto) 0.300 Neut % (Auto) 52.2 Lymph % (Auto) 34.7 [place] % (Auto) 11.0 H Eos % (Auto) 1.2 Baso % (Auto) 0.6 Absolute Neuts (auto) 4.7 Absolute Lymphs (auto) 3.09 Nucleated RBC % 0 Sodium 138 Potassium 3.7 Chloride 106 Carbon Dioxide 29.0 Anion Gap 3 L BUN 18 Creatinine 0.90 Estim Creat Clear Calc 68.16 Est GFR (MDRD) Af Amer 87 Est GFR (MDRD) Non-Af 72 BUN/Creatinine Ratio 20.0 Glucose 104 Calcium 9.1 EKG Normal sinus rhythm: Attestation: I personally reviewed and interpreted this EKG as follows: Comments: Normal sinus rhythm, rate of 98 bpm, IL interval 122 ms, QRS duration 82 ms, no acute ST elevation, no acute infarct noted <Dr. Arian Reyes MD - Last Filed: 09/21/21 12:34> MDM MDM Narrative Medical decision making narrative: I have personally performed a face to face assessment of the patient and have reviewed the TYRONE Note. I performed a substantive portion of the visit including all aspects of the following. My cordon findings include: History is patient presents because of increased symptoms. She has had palpitations for some time. She contacted the cardiology office who recommended she come to the emergency department. She denies fever, chills night sweats. She denies any exacerbating, precipitating or alleviating factors. She states last evening when she checked her pulse it was 42. She does not have a bit Bann or apple watch that can monitor her heart rate or perform a tracing. She has had a significant work-up which included a Holter monitor, echo, stress test. She is scheduled to see Dr. Juan F Denise later this month. Patient believes she is having symptoms now. Monitor reveals a sinus rhythm with no ectopy. Exam is unremarkable. Vital signs noted. HEENT exams are marked. Lungs are clear auscultation. Heart is regular that murmur, gallop or rub. Abdomen soft nontender. There is no asymmetry, swelling, discoloration, leg vein distention, palpable cords or tenderness along the distribution of the deep venous system. Medical Decision Making EKG was obtained which is normal per my interpretation. Ventricular rate was 98. There may be a left axis. Blood work was obtained and normal. Case was discussed with Dr. Denise and plan is a event monitor. event monitor Other additions or changes: [None] Lab Data Labs: Laboratory Results - last 24 hr 09/21/21 09/21/21 12:00 12:00 WBC 8.9 RBC 5.05 Hgb 14.5 Hct 43.7 MCV 86.5 MCH 28.7 MCHC 33.2 RDW Std Deviation 37.8 RDW Coeff of Susan 11.9 Plt Count 322 MPV 9.7 Immature Gran % (Auto) 0.300 Neut % (Auto) 52.2 Lymph % (Auto) 34.7 [place] % (Auto) 11.0 H Eos % (Auto) 1.2 Baso % (Auto) 0.6 Absolute Neuts (auto) 4.7 Absolute Lymphs (auto) 3.09 Nucleated RBC % 0 Sodium 138 Potassium 3.7 Chloride 106 Carbon Dioxide 29.0 Anion Gap 3 L BUN 18 Creatinine 0.90 Estim Creat Clear Calc 68.16 Est GFR (MDRD) Af Amer 87 Est GFR (MDRD) Non-Af 72 BUN/Creatinine Ratio 20.0 Glucose 104 Calcium 9.1 Discharge Plan Triage Chief Complaint: Palpitations ED Midlevel Provider: Juan F Costa ED Provider: Arian Reyes Dx/Rx/DC Orders Clinical Impression: Heart palpitations Instructions: ED Palpitations Primary Care Provider: Megan Moss NP Referrals: Megan Moss NP, [facility]ELOP[facility] ASSISTANT-C [Primary Care Provider] - Activity Restrictions/Additional Instructions: You will use your event monitor, the techs will tell you where to drop it off. You have a appointment with your machine package sealer at the end of the month, please keep his appointment. Return for any worsening symptoms. Print Language: Amharic Disposition Disposition: Home, Self Care
[2021-09-21 12:12] LABS: Absolute Lymphocyte Count 3.09 X10^3/uL (0.83-4.51); Absolute Neutrophil Count 4.7 X10^3/uL (2.0-7.7); Basophil# 0.05 X10^3/uL; Basophil% 0.6 % (0-1); Eosinophil# 0.11 X10^3/uL; Eosinophils% 1.2 % (0-5); Hematocrit 43.7 % (37-47); Hemoglobin 14.5 g/dL (12.0-15.0); Lymphocyte # 3.09 X10^3/ul (0.83-4.51); Lymphocyte % 34.7 % (19-41); Mean Corp Hgb Conc 33.2 g/dL (32-36); Mean Corpuscular Hgb 28.7 pg (27.0-32.0); Mean Corpuscular Volume 86.5 fL (81-99); Mean Platelet Vol. 9.7 fl (6.2-12.0); Monocyte# 0.98 X10^3/uL; NRBC Flagged by Analyzer 0 % (0-5); Neutrophil # 4.65 X10^3/uL (2.7-7.7); Neutrophil % 52.2 % (47-70); Platelet Count 322 K/mm3 (150-450); RBC Distribution Width CV 11.9 % (11.6-14.6); RBC Distribution Width SD 37.8 fl (35.1-43.9); Red Blood Count 5.05 M/mm3 (4.2-5.4); White Blood Count 8.9 K/mm3 (4.4-11.0)
[2021-09-21 12:18] LABS: Anion Gap 3 (5-15); BUN 18 mg/dL (7-18); Calcium,Total 9.1 mg/dL (8.5-10.1); Chloride 106 mmol/L (98-107); EST Glomerular Filtration Rate 72 mL/min (>60); Est Glom Filt Rate - Afr Amer 87 mL/min (>60); Estimated Creatinine Clearance 68.16 ml/min; Glucose 104 mg/dL (74-106); Potassium 3.7 mmol/L (3.5-5.1); Sodium Level 138 mmol/L (136-145)
[2021-09-21 13:16] VITALS: BP 119/72; PULSE 75; RESP 16; O2SAT 98
== END 2021-09-21 13:17 | disposition home or self-care (01) ==
PROVIDERS: Nurse Practitioner; Emergency Provider Emergency Medicine; PCP Nurse Practitioner; Visit Provider Emergency Medicine
DX: R00.2 Palpitations (principal); M32.9 Systemic lupus erythematosus, unspecified; K21.9 Gastro-esophageal reflux disease without esophagitis; Z86.16 Personal history of COVID-19; K58.9 Irritable bowel syndrome, unspecified
CPT/HCPCS: 80048; 85025; 93005; 99283; A4216

== ENCOUNTER 2021-09-21 12:42 | Outpatient (CLI) | payer OTHER, SELFPAY | END 2021-09-21 23:59 | disposition home or self-care (01) | LOC: CVS 12:46 | PROVIDERS: PCP Nurse Practitioner; Visit Provider Emergency Medicine | DX: Z00.00 Encounter for general adult medical examination without abnormal findings (principal) ==

== ENCOUNTER → 2022-02-01 | Outpatient (CLI) | payer OTHER, SELFPAY ==
[2022-02-01 17:12] LABS: Absolute Lymphocyte Count 3.26 X10^3/uL (0.83-4.51); Absolute Neutrophil Count 6.6 X10^3/uL (2.0-7.7); Basophil# 0.05 X10^3/uL; Basophil% 0.4 % (0-1); Eosinophil# 0.15 X10^3/uL; Eosinophils% 1.3 % (0-5); Hematocrit 37.3 % (37-47); Hemoglobin 12.4 g/dL (12.0-15.0); Lymphocyte # 3.26 X10^3/ul (0.83-4.51); Lymphocyte % 28.7 % (19-41); Mean Corp Hgb Conc 33.2 g/dL (32-36); Mean Corpuscular Hgb 28.8 pg (27.0-32.0); Mean Corpuscular Volume 86.5 fL (81-99); Mean Platelet Vol. 10.1 fl (6.2-12.0); Monocyte# 1.28 X10^3/uL; Monocyte% 11.3 % (0-10); NRBC Flagged by Analyzer 0 % (0-5); Neutrophil # 6.57 X10^3/uL (2.7-7.7); Neutrophil % 57.9 % (47-70); Platelet Count 290 K/mm3 (150-450); RBC Distribution Width SD 38.8 fl (35.1-43.9); Red Blood Count 4.31 M/mm3 (4.2-5.4); White Blood Count 11.4 K/mm3 (4.4-11.0)
[2022-02-01 18:18] LABS: BNP,B-Type NATRIURETIC PEPTIDE 16.1 pg/mL (0-100)
[2022-02-01 18:57] LABS: Anion Gap 6 (5-15); BUN 17 mg/dL (7-18); BUN/Creat Ratio 17.2 RATIO (10-20); CRP < 2.90 mg/L (0.0-3.0); Calcium,Total 8.8 mg/dL (8.5-10.1); Chloride 106 mmol/L (98-107); Creatinine, Serum 0.99 mg/dL (0.55-1.02); EST Glomerular Filtration Rate 64 mL/min (>60); Est Glom Filt Rate - Afr Amer 78 mL/min (>60); Glucose 85 mg/dL (74-106); Potassium 3.4 mmol/L (3.5-5.1); Sodium Level 141 mmol/L (136-145); T4 Free Direct 0.93 ng/dL (0.76-1.46); Thyroid Stim Hormone (TSH) 1.98 uIU/mL (0.358-3.74)
== END | disposition home or self-care (01) ==
LOC: LAB 16:23
PROVIDERS: PCP Nurse Practitioner Family; Referring Provider Nurse Practitioner Gerontology; Visit Provider Nurse Practitioner Gerontology
DX: R06.09 Other forms of dyspnea (principal); M32.9 Systemic lupus erythematosus, unspecified; R53.83 Other fatigue
CPT/HCPCS: 36415; 80048; 83880; 84439; 84443; 85025; 86140

== ENCOUNTER → 2022-02-02 | Outpatient (CLI) | payer OTHER, SELFPAY ==
--- NOTE | 2022-02-02 11:20 | RAD_ITS ---
STUDY: X-RAY CHEST REASON FOR EXAM: Female, 46 years old. Atypical chest pain TECHNIQUE: PA and lateral views of the chest. COMPARISON: 06/09/2019 FINDINGS: The lungs are clear and expanded. There is no demonstrated pleural abnormality. Normal size heart. Normal mediastinum and renee. Normal visualized pulmonary arteries. Normal visualized aortic arch and descending thoracic aorta. Normal visualized thoracic spine. Normal visualized ribs, clavicles, and shoulders. There is no demonstrated abnormality of the visualized soft tissue structures of the upper abdomen. RAD/Chest PA and Lateral IMPRESSION: Normal x-ray examination of the chest. Electronically Signed: Baljeet Simpson MD at 8:21 EDT ,
== END | disposition home or self-care (01) ==
LOC: RAD 11:05
PROVIDERS: PCP Nurse Practitioner Family; Referring Provider Nurse Practitioner Gerontology; Visit Provider Nurse Practitioner Gerontology
DX: R07.9 Chest pain, unspecified (principal)
CPT/HCPCS: 71046

== ENCOUNTER → 2023-02-12 | Outpatient (CLI) | payer OTHER, SELFPAY ==
--- NOTE | 2023-02-12 12:04 | CT_ITS ---
STUDY: CT ABDOMEN AND PELVIS WITH CONTRAST REASON FOR EXAM: Female, 47 years old. Abdominal pain with fever. R/O diverticulitis, perforation. -- IODINE allergy--please do IV prep protocol RADIATION DOSAGE (If Supplied By Facility): CTDIvol = ( 14.82 ) mGy, DLP = ( 1013.17 ) mGycm TECHNIQUE: Transaxial images were obtained from the dome of the diaphragm to the symphysis pubis with oral contrast. Oral and amp; IV Gastrografin and amp; 100mL Isovue-300 was administered. Sagittal and coronal images were reconstructed. Individualized dose optimization techniques were used for this CT. COMPARISON: None. FINDINGS: Mild degree of the linear dependent bibasilar atelectasis. The visualized portions of the heart are within normal limits. Normal liver. Normal gallbladder and extrahepatic biliary system. Normal spleen. Normal pancreas. Normal bilateral adrenal glands. Normal right kidney. Normal left kidney. Normal visualized stomach. Normal small intestine. There is a 2.5 cm x 3.2 cm x 2.7 cm heterogeneous soft tissue mass in the proximal portion of the transverse colon. A neoplastic process should be ruled out. Localized inflammatory abnormality should be considered as well. There is also evidence of a wall thickening of the sigmoid colon. Localized colitis should be ruled out. Consideration. The appendix is visualized and appears normal. Normal abdominal aorta. Normal inferior vena cava. Normal retroperitoneum. Normal urinary bladder. Heterogeneous enlargement of the uterus suggestive of fibroid uterus. Normal abdominal wall. There are mild degenerative changes of the visualized lumbar spine. CT/Abdomen/Pelvis WITH Contrast IMPRESSION: 2.5 cm x 3.2 cm x 2.7 cm homogeneous soft tissue mass in the proximal portion of the transverse colon. A neoplastic process versus focal inflammation should be ruled out. Thickening of the sigmoid colon as described. Enlarged fibroid uterus. Electronically Signed: Mathieu Sims MD at 15:08 EDT ,
[2023-02-12 13:05] VITALS: BP 119/76; PULSE 79; RESP 16; O2SAT 100; BMI 32.8
[2023-02-12] MEDS: DiphenhydrAMINE 50 MG/ML Syringe IV (13:13)
[2023-02-12] MEDS: Methylprednisolone Sod Succ 40 MG/ML VIAL 60 MG IV (13:14)
[2023-02-12] MEDS: 0.9% Saline Lock 10 ML Syringe IV (13:16)
[2023-02-12 14:52] VITALS: BP 118/72; PULSE 74; RESP 16; O2SAT 100
== END | disposition home or self-care (01) ==
LOC: CT 12:02
PROVIDERS: PCP Nurse Practitioner Family; Referring Provider Nurse Practitioner Family; Visit Provider Nurse Practitioner Family
DX: R10.9 Unspecified abdominal pain (principal)
CPT/HCPCS: 74177; 96374; Q9967; A4216

== ENCOUNTER 2024-11-07 20:52 | Inpatient (IN) | payer SELFPAY ==
[2024-11-07] VITALS (9 sets, daily range): BP systolic 106–146; BP diastolic 67–101; PULSE 75–101; RESP 15–23; TEMP 36.8–37; O2SAT 98–100; BMI 34.9
--- NOTE | 2024-11-07 20:57 | EKG12_ITS ---
Test Reason : DYSRHYTHMIA Blood Pressure : */* mmHG Vent. Rate : 80 BPM Atrial Rate : 80 BPM P-R Int : 174 ms QRS Dur : 92 ms QT Int : 390 ms P-R-T Axes : 44 -28 35 degrees QTcB Int : 449 ms Normal sinus rhythm Normal ECG Confirmed by Mike Thompson ([id number]), video news editor ECTOR RAMSAY ([id number]) on 11/09/2024 10:56:18 AM Referred By: Confirmed By: Mike Thompson
--- NOTE | 2024-11-07 20:57 | CT_ITS ---
PROCEDURE: STROKE BRAIN/HEAD WITHOUT CONT 11/07/2024 REASON FOR EXAM: NEURO DEFICIT, ACUTE, STROKE SUSPECTED TECHNIQUE: Head CT without intravenous contrast. Coronal and Sagittal reconstruction series were provided. One or more dose reduction techniques were used (e.g., Automated exposure control, adjustment of the mA and/or kV according to patient size, use of iterative reconstruction technique. RADIATION DOSE SUMMARY: CTDlvol: 44.99 mGy DLP: 796.11 mGycm COMPARISON: None. FINDINGS: The ventricles are normal in size and midline in position. No evidence of acute hemorrhage or infarction. No extra-axial blood or fluid collections. The paranasal sinuses are clear. The mastoid air cells are well aerated. The calvarial vault and skull base are intact. CT/STROKE Brain/Head without Cont IMPRESSION: No acute intracranial abnormality. Reading Location: [place] [id number]
--- NOTE | 2024-11-07 20:59 | EDS_ITS ---
HPI History of Present Illness Chief Complaint: Stroke Alert Informant: patient Narrative Narrative: 49-year-old female presenting to the emergency room out of concern for stroke. Patient states she has a history of lupus and a clotting disorder that she is not sure of. She is not currently on anticoagulants but states that she took Lovenox shots during . She believes it could be factor V or perhaps MTHFR. Patient states that during this week past week she has had intermittent left periorbital numbness. She states that tonight at around 1800 hrs. she was at [employer] and began to notice more facial numbness not involving the forehead. She states that she was having some difficulty speaking and that she said gram poopers instead of albaro crackers. She states that she feels drunk when she is moving around. She denies any arm or leg weakness or sensory changes. She denies any vision change. [facility] Medical History IBS (irritable bowel syndrome) Ventricular ectopy GERD (gastroesophageal reflux disease) COVID-19 (07/2020) Lupus Home Medications ?Medication ?Instructions ?Recorded ?Last Taken ?Type folic acid 1 mg tablet 1 mg PO DAILY 11/07/24 Unkno wn History methotrexate sodium 2.5 mg tablet 15 mg PO QWEEK 11/07 Unknown History Allergy/AdvReac Type Severity Reaction Status Date / Time Iodinated Contrast Media Allergy Itching Verified 11/07/24 20:53 (SALVADOR) Family History Mother Myocardial infarction, Onset Age: 72 Heart disease Grandfather Myocardial infarction, Onset Age: 55 Heart disease Uncle Myocardial infarction, Onset Age: 40 Heart disease Aunt Heart disease afib Brother CAD (coronary artery disease), Onset Age: 52 CABG Other Cancer Diabetes Hypertension Surgical History History of tonsillectomy Social History Smoking Status: Never smoker alcohol intake: never substance use type: does not use caffeine: Yes (1x week) ROS ROS ED Constitutional Constitutional ED: Denies chills, fever(s) or weight loss Eyes Eyes: Denies change in vision or diplopia ENT ENT ED: Denies ear pain, rhinorrhea or sore throat Cardiovascular Cardiovascular: Denies chest pain, orthopnea, palpitations or racing heartbeat Respiratory/Chest Respiratory/Chest: Denies cough, dyspnea or orthopnea Gastrointestinal Gastrointestinal: Denies abdominal pain, diarrhea, nausea or vomiting Genitourinary Genitourinary ED: Denies dysuria, hematuria or urinary frequency Musculoskeletal Musculoskeletal: Denies arthralgias or myalgias Integumentary Denies abscess or rash Neurologic Neurologic: Reports paresthesias, weakness and other Details: See history of present illness ; Denies headache(s) Psychiatric Psychiatric: Denies anxiety, depression, suicidal ideation or suicidal thoughts Endocrine Endocrinology: Denies polydipsia, polyphagia or polyuria Allergic/Immunologic Allergic/Immunologic ED: Denies mouth swelling, tongue swelling or urticaria EXAM Physical Exam Const Vital Signs: 11/07/24 20:53 11/07/24 21:08 11/07/24 21:08 Temperature 98.2 F 98.6 F Temperature Source Oral Oral Pulse Rate 101 H 90 89 Respiratory Rate 18 18 17 Blood Pressure 146/101 H 145/79 H 123/76 H Blood Pressure Mean 116 101 91 Pulse Ox 100 100 100 Oxygen Delivery Method Room Air Room Air Room Air 11/07/24 21:20 11/07/24 21:30 Temperature Temperature Source Pulse Rate 86 Respiratory Rate 18 Blood Pressure 118/76 Blood Pressure Mean 90 Pulse Ox 100 Oxygen Delivery Method Room Air Room Air Positive well nourished and well developed General Appearance ED: well developed and NAD HEENT Reports normocephalic, head/scalp atraumatic and moist mucous membranes Eyes PERRL and EOMs intact bilaterally Neck no lymphadenopathy, supple and no JVD Resp normal respiratory effort and clear to auscultation bilaterally Cardio regular rate, regular rhythm and no murmurs GI normal to inspection, nondistended, normoactive bowel sounds and non-tender Palpation: soft Back/Spine no CVA tenderness and normal ROM Extremity normal to inspection General Extremety ED: Negative for edema General Extremity: Negative for edema Neuro [place] Coma Scale: document GCS findings Spontaneous Obeys Commands Sensorium / Orientation: alert Motor Exam: strength 5/5 throughout Psych mental status grossly normal Mood & Affect: Negative for depressed or tearful Skin no rashes or lesions noted and no wounds MDM MDM MDM Narrative Medical decision making narrative: Differential diagnosis includes but not limited to stroke TIA aneurysm intracranial hemorrhage arterial dissection Patient presenting to the emergency department out of concern for stroke. Patient was assessed in the triage area and stroke team was called. She notes an allergy to IV dye and so initially a noncontrasted head CT was obtained. This is negative for intracranial hemorrhage. She was premedicated with Benadryl and Solu-Medrol after [facility] examination. Patient has done well with pretreatment in the past per her own report Patient was interviewed by [facility] is felt not to be a TNK candidate. Patient reportedly told [facility] that her facial droop has never returned to baseline though she had mentioned in triage intermittent throughout the week. Her facial droop has now resolved on the left. [facility] is recommending inpatient workup with MRI. We will proceed with CTA once she has been premedicated and plan on admission. Basic blood work shows a glucose of 122 negative troponin. My independent interpretation the chest x-ray is no acute process. EKG is a sinus rhythm. Care of the patient will be turned over to the oncoming night physician for check of CTA and to place the admission order. I have already spoke with the hospitalist and admission is pending a negative LVO on CTA. History & Record Review Discussion w/independent historian: Patient Additional record(s) reviewed:: Prior ED visit Lab Data Attestation: I reviewed the patient's lab results. Labs: Laboratory Results - last 24 hr 11/07/24 20:56 WBC 11.8 H RBC 4.71 Hgb 13.7 Hct 40.7 MCV 86.4 MCH 29.1 MCHC 33.7 RDW Std Deviation 40.4 RDW Coeff of Susan 13.0 Plt Count 318 MPV 9.6 Immature Gran % (Auto) 0.400 Neut % (Auto) 51.0 Lymph % (Auto) 38.3 [place] % (Auto) 8.1 Eos % (Auto) 1.8 Baso % (Auto) 0.4 Absolute Neuts (auto) 6.0 Absolute Lymphs (auto) 4.50 Nucleated RBC % 0 PT 12.5 INR 0.9 APTT 26.1 Sodium 137 Potassium 3.6 Chloride 101 Carbon Dioxide 23.3 Anion Gap 13 BUN 15 Creatinine 0.93 Estim Creat Clear Calc 78.53 Est GFR (MDRD) Non-Af 76 BUN/Creatinine Ratio 16.6 Glucose 122 H Calcium 9.3 Troponin T High Sens < 6 POC Glucose 124 H Radiography Diagnostic Testing: Clinical Impression(s) from Imaging Studies Brain CT 11/07/24 20:57 IMPRESSION: No acute intracranial abnormality. Reading Location: [place] [id number] EKG Initial EKG: Attestation: I personally reviewed and interpreted this EKG as follows: Comments: Normal sinus rhythm ventricular rate of 80 bpm Management Discussion w/another healthcare provider: Hospitalist, Secured Entrance Monitor and Radiologist Critical Care Time Critical Care Time: Yes Critical care time (excluding procedures): 30-74 minutes (34 min), Including time spent:, Discussing w/Patient &/or Family/Telesales Specialist, Discussing w/Consultants, Arranging Admission or Transfer and Performing Direct Patient Care at Bedside Discharge Plan Triage Chief Complaint: Stroke Alert ED Provider: Mina Molina Dx/Rx/DC Orders Prescriptions: No Action methotrexate sodium 2.5 mg tablet 15 mg PO QWEEK folic acid 1 mg tablet 1 mg PO DAILY Primary Care Provider: Helen Alexis Referrals: Helen Alexis, [employer]ECTOR OPERATOR-C [Primary Care Provider] - Print Language: Korean NIHSS NIHSS 1a. Level of Consciousness: 0 - Alert; keenly responsive 1b. LOC Questions: 0 - Answers BOTH questions correctly 2. Best Gaze: 0 - Normal 3. Visual: 0 - No visual loss 4. Facial Palsy: 1 - Minor paralysis (flattened nasolabial fold, asymmetry on smiling) 5a. Left Arm: 0 - No drift; arm holds 90 (or 45) degrees for full 10 seconds 5b. Right Arm: 0 - No drift; arm holds 90 (or 45) degrees for full 10 seconds 6a. Left Le - No drift; leg holds 30-degree position for full 5 seconds 6b. Right Le - No drift; leg holds 30-degree position for full 5 seconds 7. Limb Ataxia: 0 - Absent 8. Sensory: 1 - [id number] sensory loss; 9. Best Language: 0 - No aphasia; normal 10. Dysarthria: 1 = [id number] dysarthria; 11. Extinction and Inattention: 0 - No abnormality Total: 3
[2024-11-07 21:05] LABS: Basophil# 0.05 X10^3/uL; Basophil% 0.4 % (0-1); Eosinophil# 0.21 X10^3/uL; Eosinophils% 1.8 % (0-5); Hematocrit 40.7 % (37-47); Hemoglobin 13.7 g/dL (12.0-15.0); Lymphocyte % 38.3 % (19-41); Mean Corp Hgb Conc 33.7 g/dL (32-36); Mean Corpuscular Hgb 29.1 pg (27.0-32.0); Mean Corpuscular Volume 86.4 fL (81-99); Mean Platelet Vol. 9.6 fl (6.2-12.0); Monocyte# 0.95 X10^3/uL; Monocyte% 8.1 % (0-10); NRBC Flagged by Analyzer 0 % (0-5); Platelet Count 318 K/mm3 (150-450); RBC Distribution Width SD 40.4 fl (35.1-43.9); Red Blood Count 4.71 M/mm3 (4.2-5.4); White Blood Count 11.8 K/mm3 (4.4-11.0)
[2024-11-07 21:14] LABS: Bedside Glucose 124 mg/dL (74-106)
--- NOTE | 2024-11-07 21:15 | ED.RN ---
9201 dr Artie PÉREZ spoke via telehealth computer to pt.
[2024-11-07 21:16] LABS: International Normalized Ratio 0.9; Prothrombin Time (Protime)PT. 12.5 SECONDS (11.7-14.9)
[2024-11-07 21:17] LABS: Partial Thromboplast Time 26.1 Seconds (24.1-36.2)
[2024-11-07 21:22] LABS: Anion Gap 13 (5-15); BUN 15 mg/dL (4-19); BUN/Creat Ratio 16.6 RATIO (10-20); Calcium,Total 9.3 mg/dL (7.6-11.0); Carbon Dioxide 23.3 mmol/L (21.0-32.0); Chloride 101 mmol/L (98-108); Creatinine, Serum 0.93 mg/dL (0.70-1.20); EST Glomerular Filtration Rate 76 (>60); Estimated Creatinine Clearance 78.53 ml/min (50-250); Glucose 122 mg/dL (70-99); Potassium 3.6 mmol/L (3.3-5.1); Sodium Level 137 mmol/L (133-145); Troponin T High Sensitivity < 6 ng/L (<=14)
[2024-11-07] MEDS: MethylPREDNISolone 125 MG/2 ML Vial 40 MG IV (21:26)
[2024-11-07] MEDS: DiphenhydrAMINE 50 MG/ML Syringe IV (21:27)
--- NOTE | 2024-11-07 21:31 | CT_ITS ---
PROCEDURE: CTA HEAD AND NECK W/ CONTRAST 11/07/2024 REASON FOR EXAM: STROKE (L) FACIAL NUMBNESS AND DYSARTHRIA TECHNIQUE: CTA imaging of the head and neck from the aortic arch to the skull vertex with out contrast and with intravenous contrast. Multiplanar and multisequence images were obtained. CONTRAST: Isovue 370 VOLUME: 97 mL. One or more dose reduction techniques were used (e.g., Automated exposure control, adjustment of the mA and/or kV according to patient size, use of iterative reconstruction technique). RADIATION DOSE SUMMARY: CTDlvol: 16.61+ 18.81 mGy DLP: 752.75 mGycm COMPARISON: None. FINDINGS: The lung apices are clear. The carotid, internal carotid, and cervical vertebral arteries are patent without evidence of stenosis or injury. The [id number] is patent. The anterior cerebral, anterior communicating, middle cerebral, and posterior cerebral arteries are patent. The intracranial vertebrobasilar system is patent. CT/CTA Head AND Neck W/ Contrast IMPRESSION: No acute arterial abnormalities of the head or neck. Reading Location: [place] [address]
--- NOTE | 2024-11-07 21:35 | ED.RN ---
2107 Pt arrived back from imaging.
--- NOTE | 2024-11-07 22:35 | RAD_ITS ---
PROCEDURE: CHEST 1 VIEW 11/07/2024 REASON FOR EXAM: NEURO DEFICIT, ACUTE, STROKE SUSPECTED TECHNIQUE: Frontal view of the chest. COMPARISON: 02/03/2022. FINDINGS: The heart is normal in size. The mediastinum is normal in contour. The lungs are clear. No acute osseous abnormalities. RAD/Chest 1 View IMPRESSION: No acute cardiopulmonary abnormalities. Reading Location: [place] [id number]
--- NOTE | 2024-11-07 23:06 | PCM.HP.STD ---
HPI - General HPI Narrative DELMY YATES, is a 49 F who presents to the hospital with signs and symptoms concerning for possible stroke. 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 She had been having facial numbness for about a week and intermittent numbness in her upper and lower extremities on the left. She is also noticed some right lower extremity leg swelling. Of note she did have a positive bubble study on her echocardiogram in 03/02/2021. She states that what was different today was she was at the grocery store and she was having speech difficulty, not necessarily getting words out that the words that she was coming up with were nonsensical. Her has also noticed periods of intermittent left facial droop over the last week or so. COUNT INCLUDES THE [facility] Medical History IBS (irritable bowel syndrome) Ventricular ectopy GERD (gastroesophageal reflux disease) COVID-19 (07/2020) Lupus Home Medications ?Medication ?Instructions ?Recorded ?Last Taken ?Type folic acid 1 mg tablet 1 mg PO DAILY 11/07/24 Unknown History methotrexate sodium 2.5 mg tablet 15 mg PO QWEEK 11/07/24 Unknown History Allergy/AdvReac Type Severity Reaction Status Date / Time Iodinated Contrast Media Allergy Itching Verified 11/07/24 20:53 ([place]) Family History Mother Myocardial infarction, Onset Age: 72 Heart disease Grandfather Myocardial infarction, Onset Age: 55 Heart disease Uncle Myocardial infarction, Onset Age: 40 Heart disease Aunt Heart disease afib Brother CAD (coronary artery disease), Onset Age: 52 CABG Other Cancer Diabetes Hypertension Surgical History History of tonsillectomy Social History Smoking Status: Never smoker alcohol intake: never substance use type: does not use caffeine: Yes (1x week) ROS Constitutional Constitutional: Denies chills, fatigue, fever(s) or malaise Eyes Eyes: Denies blurry vision ENT HEENT: Denies headache(s) or nasal discharge Cardiovascular Cardiovascular: Denies chest pain, dyspnea on exertion or syncope Respiratory/Chest Respiratory/Chest: Denies cough, shortness of breath at rest or shortness of breath with exertion Gastrointestinal Gastrointestinal: Denies constipation, diarrhea, nausea or vomiting Genitourinary Genitourinary: Denies dysuria Neurologic Neurologic: Reports abnormal speech and numbness; Denies focal weakness or tremor(s) Psychiatric Psychiatric: Denies anxiety or depression Vital Signs Vital Signs Vital Signs: 11/07/24 20:53 11/07/24 21:08 11/07/24 21:08 Temperature 98.2 F 98.6 F Temperature Source Oral Oral Pulse Rate 101 H 90 89 Respiratory Rate 18 18 17 Blood Pressure 146/101 H 145/79 H 123/76 H Blood Pressure Mean 116 101 91 Pulse Ox 100 100 100 Oxygen Delivery Method Room Air Room Air Room Air 11/07/24 21:20 11/07/24 21:30 11/07/24 21:53 Temperature Temperature Source Pulse Rate 86 81 Respiratory Rate 18 15 Blood Pressure 118/76 120/80 Blood Pressure Mean 90 93 Pulse Ox 100 Oxygen Delivery Method Room Air Room Air 11/07/24 22:00 11/07/24 22:00 11/07/24 22:30 Temperature Temperature Source Pulse Rate 79 78 77 Respiratory Rate 17 23 H Blood Pressure 120/79 116/75 Blood Pressure Mean 92 88 Pulse Ox 100 100 Oxygen Delivery Method Room Air Room Air Weight Weight: 197 lb 4.667 oz Body Mass Index (BMI) 34.9 Physical Exam Narrative General: Alert, Oriented x3, Cooperative, No apparent distress HEENT: Atraumatic, PERRLA, EOMI, Normocephalic Oral: Moist Mucosa Neck: Supple, No JVD Lungs: Diminished, Normal air movement, No rhonchi, No wheeze, No rales Cardiovascular: Regular rate, Regular Rhythm, Normal S1, Normal S2, No murmurs Abdomen: Soft, Non Tender, Non-Distended, No Hepato-splenomegaly Extremities: No edema, Capillary Refill Less than 3 Seconds Skin: No rashes, No breakdown Musculoskeletal: Tenderness to right ankle with little bit of swelling Neurological: No focal neurological deficits, Motor Exam 5/5 strength throughout, decreased sensation in her left face no longer has a facial droop Psych/Mental Status: Normal Affect, Appropriate Results Lab / Micro Data 11/07/24 20:56 11/07/24 20:56 Labs: Laboratory Results - last 24 hr 11/07/24 20:56: WBC 11.8 H, RBC 4.71, Hgb 13.7, Hct 40.7, MCV 86.4, MCH 29.1, MCHC 33.7, RDW Std Deviation 40.4, RDW Coeff of Susan 13.0, Plt Count 318, MPV 9.6, Immature Gran % (Auto) 0.400, Neut % (Auto) 51.0, Lymph % (Auto) 38.3, [place] % (Auto) 8.1, Eos % (Auto) 1.8, Baso % (Auto) 0.4, Absolute Neuts (auto) 6.0, Absolute Lymphs (auto) 4.50, Nucleated RBC % 0, PT 12.5, INR 0.9, APTT 26.1, Sodium 137, Potassium 3.6, Chloride 101, Carbon Dioxide 23.3, Anion Gap 13, BUN 15, Creatinine 0.93, Estim Creat Clear Calc 78.53, Est GFR (MDRD) Non-Af 76, BUN/Creatinine Ratio 16.6, Glucose 122 H, Calcium 9.3, Troponin T High Sens < 6, POC Glucose 124 H Imaging Radiology Impression Brain CT 11/07/24 20:57 IMPRESSION: No acute intracranial abnormality. Reading Location: [place] [id number] Assessment & Plan Assessment/Plan (1) TIA (transient ischemic attack): PLAN: Plan 1. TIA versus CVA ? Unclear at the moment, we have to premedicate for CTA of the head and neck and then can likely have an MRI on Saturday ? She does have a hypercoagulable state and she is not on baseline anticoagulation, it does appear that some of her reticence in terms of medical care is due to her lack of insurance coverage ? She will need Doppler of her lower extremities given her positive bubble study in 2020 ? Repeat echo on Saturday ? CTA of the head and neck was unremarkable and CT of the brain was normal 2. Lupus ? Continue with folic acid and methotrexate DVT: SCDs 75 minutes was spent on direct patient care, including documentation as well as chart review and collaboration with colleagues Charges/Coding Visit Charges Inpatient E&M: 87078 Init Hosp L3
[2024-11-07 23:11] LABS: Troponin T High Sens 2 HR < 6 ng/L (<=14)
[2024-11-08] VITALS (10 sets, daily range): BP systolic 105–128; BP diastolic 62–73; PULSE 71–94; RESP 16–19; TEMP 35.9–36.9; O2SAT 95–99; BMI 32.9
--- NOTE | 2024-11-08 00:43 | MRI_ITS ---
PROCEDURE: BRAIN WITHOUT CONTRAST 11/08/2024 REASON FOR EXAM: CVA TECHNIQUE: Noncontrast brain MRI. Multiplanar and multisequence images were obtained. COMPARISON: None. FINDINGS: The ventricles are normal in size and midline in position. No evidence of acute hemorrhage or infarction. No extra-axial blood or fluid collections. The paranasal sinuses are clear. The mastoid air cells are well aerated. The calvarial vault and skull base are intact. MRI/Brain without Contrast IMPRESSION: No acute intracranial abnormality. Reading Location: [place] [id number]
[2024-11-08 02:21] LABS: Troponin T High Sens 4 HR < 6 ng/L (<=14)
--- NOTE | 2024-11-08 05:40 | RAD_ITS ---
PROCEDURE: ANKLE MIN 3 VIEWS 11/08/2024 REASON FOR EXAM: SWELLING AND PAIN TECHNIQUE: Three views of the right ankle. COMPARISON: 01/27/2019. FINDINGS: No evidence of acute fracture or dislocation. No ankle joint effusion. No fat stranding of the soft tissues to suggest edema. Large amount of adipose tissue. RAD/Ankle min 3 Views IMPRESSION: No acute osseous abnormalities. Reading Location: [id number]
--- NOTE | 2024-11-08 05:55 | VDLE_ITS ---
Reason For Study Reason For Study: Pain RLE RIGHT LEFT GSV is normal. CFV is compressible, spontaneous, phasic, competent, CFV is compressible, spontaneous, phasic, competent and demonstrates normal augmentation. and demonstrates normal augmentation. FV is compressible, spontaneous, phasic, competent and demonstrates normal augmentation. POP V is compressible, spontaneous, phasic, competent and demonstrates normal augmentation. T/P Trunk is compressible. PTV is compressible. RT PerV is compressible. Procedure This is a venous duplex using B-mode, color flow and spectral Doppler. Exam performed portable in patient room. A preliminary report was called and/or faxed to Patients RN. VL/Venous Duplex US, Unilateral Interpretation Summary Deep veins of the right lower extremity are patent and compressible segmentally . There is no evidence of right lower extremity deep vein thrombosis. Valvular competence appears intact within the p roximal deep venous system on the right . The right great saphenous vein appears patent and compressible segmentally. The left common femoral vein is patent and compressible . Ordering Physician: Mack Bai Referring Physician: Helen Alexis Performed By: Shea Carrion, CHRIS, RVT
[2024-11-08 07:01] LABS: Absolute Lymphocyte Count 1.19 X10^3/uL (0.83-4.51); Basophil# 0.01 X10^3/uL; Basophil% 0.1 % (0-1); Hematocrit 40.6 % (37-47); Hemoglobin 13.5 g/dL (12.0-15.0); Lymphocyte # 1.19 X10^3/ul (0.83-4.51); Lymphocyte % 16.4 % (19-41); Mean Corp Hgb Conc 33.3 g/dL (32-36); Mean Corpuscular Hgb 28.7 pg (27.0-32.0); Mean Corpuscular Volume 86.4 fL (81-99); Mean Platelet Vol. 9.7 fl (6.2-12.0); Monocyte# 0.07 X10^3/uL; NRBC Flagged by Analyzer 0 % (0-5); Neutrophil # 5.95 X10^3/uL (2.7-7.7); Neutrophil % 82.1 % (47-70); Platelet Count 299 K/mm3 (150-450); RBC Distribution Width CV 12.7 % (11.6-14.6); RBC Distribution Width SD 39.7 fl (35.1-43.9); White Blood Count 7.3 K/mm3 (4.4-11.0)
[2024-11-08 07:43] LABS: Anion Gap 13 (5-15); BUN 14 mg/dL (4-19); BUN/Creat Ratio 16.7 RATIO (10-20); Calcium,Total 9.2 mg/dL (7.6-11.0); Carbon Dioxide 19.4 mmol/L (21.0-32.0); Chloride 105 mmol/L (98-108); Cholesterol 218 mg/dL (<=200); Creatinine, Serum 0.86 mg/dL (0.70-1.20); EST Glomerular Filtration Rate 84 (>60); Estimated Creatinine Clearance 85.45 ml/min (50-250); Glucose 146 mg/dL (70-99); High Density Lipoprotein 57 mg/dL; Low Density Lipoprotein Calc. 151 mg/dL; Potassium 4.1 mmol/L (3.3-5.1); Sodium Level 138 mmol/L (133-145); Triglycerides 50 mg/dL; Very Low Density Lipoprotein 10 mg/dL (5-40); cholesterol:hdl ratio screen 3.81
--- NOTE | 2024-11-08 07:43 | PN.HOSP_ITS ---
Reason for Visit Reason for Visit: Diagnoses Transient cerebral ischemic attack, unspecified (11/07/24) Objective Data Objective Data Vital Signs: Vital Signs Temp Pulse Resp BP Pulse Ox O2 Del Method 97.0 F L 81 18 105/70 95 Room Air 11/08/24 04:45 11/08/24 04:45 11/08/24 04:45 11/08/24 04:45 11/08/24 04:45 11/08/24 04:45 Oxygen Delivery Method Room Air Weight: 192 lb 0.362 oz Body Mass Index (BMI) 32.9 Intake & Output: Intake and Output for Last 24 Hours 11/06/24 11/07/24 11/08/24 23:59 23:59 23:59 Output Total 0 / 0 Balance 0 / 0 Lab / Micro Data 11/08/24 05:56 11/08/24 05:56 Labs: Laboratory Results - last 24 hr 11/07/24 20:56: WBC 11.8 H, RBC 4.71, Hgb 13.7, Hct 40.7, MCV 86.4, MCH 29.1, MCHC 33.7, RDW Std Deviation 40.4, RDW Coeff of Susan 13.0, Plt Count 318, MPV 9.6, Immature Gran % (Auto) 0.400, Neut % (Auto) 51.0, Lymph % (Auto) 38.3, Cedar % (Auto) 8.1, Eos % (Auto) 1.8, Baso % (Auto) 0.4, Absolute Neuts (auto) 6.0, Absolute Lymphs (auto) 4.50, Nucleated RBC % 0, PT 12.5, INR 0.9, APTT 26.1, Sodium 137, Potassium 3.6, Chloride 101, Carbon Dioxide 23.3, Anion Gap 13, BUN 15, Creatinine 0.93, Estim Creat Clear Calc 78.53, Est GFR (MDRD) Non-Af 76, BUN/Creatinine Ratio 16.6, Glucose 122 H, Calcium 9.3, Troponin T High Sens < 6, POC Glucose 124 H 11/07/24 22:52: Troponin T Hi Sens 2 Hr < 6 11/08/24 01:53: Troponin T Hi Sens 4Hr < 6 11/08/24 05:56: WBC 7.3, RBC 4.70, Hgb 13.5, Hct 40.6, MCV 86.4, MCH 28.7, MCHC 33.3, RDW Std Deviation 39.7, RDW Coeff of Susan 12.7, Plt Count 299, MPV 9.7, Immature Gran % (Auto) 0.400, Neut % (Auto) 82.1 H, Lymph % (Auto) 16.4 L, Cedar % (Auto) 1.0, Eos % (Auto) 0.0, Baso % (Auto) 0.1, Absolute Neuts (auto) 6.0, Absolute Lymphs (auto) 1.19, Nucleated RBC % 0, Sodium 138, Potassium 4.1, Chloride 105, Carbon Dioxide 19.4 L, Anion Gap 13, BUN 14, Creatinine 0.86, Estim Creat Clear Calc 85.45, Est GFR (MDRD) Non-Af 84, BUN/Creatinine Ratio 16.7, Glucose 146 H, Calcium 9.2, Triglycerides 50, Cholesterol 218 H, LDL Cholesterol, Calc 151, VLDL Cholesterol 10, HDL Cholesterol 57, Cholesterol/HDL Ratio 3.81 Radiography Diagnostic Testing: Radiology Impression Brain CT 11/07/24 20:57 IMPRESSION: No acute intracranial abnormality. Reading Location: [place] [address] Head/Neck CTA 11/07/24 21:31 IMPRESSION: No acute arterial abnormalities of the head or neck. Reading Location: [place] [address] Chest X-Ray 11/07/24 22:35 IMPRESSION: No acute cardiopulmonary abnormalities. Reading Location: [place] [address] Physical Exam Narrative Seen and examined Patient was admitted with left facial numbness. She had left periorbital region numbness for about 1 week. No focal weakness. Denies prior history of chronic headache/migraine or history of epilepsy Physical exam General: Alert, Oriented x3, Cooperative. BMI 33.0 kg/m?, obesity grade 1 HEENT: Atraumatic, PERRLA, EOMI, Normocephalic. Oral: No Gingival or Mucosal Lesions/ Ulcerations Neck: Supple, No JVD, Negative Carotid Bruits Chest wall/Lungs: Air entry equal in bilateral lung bases. No crepitation/rhonchi Cardiovascular: Regular rate and rhythm, Normal S1,S2, No M/G/R Abdomen: Bowel Sounds Present, Soft, Non Tender, Non-Distended : No dysuria. No renal angle tenderness. No suprapubic tenderness. Extremities: No edema, Capillary Refill Less than 3 Seconds Skin: No rashes, No breakdown Musculoskeletal: No Tenderness to Palpation of Joints or Extremities Neurological: Cranial nerves II-XII grossly intact, DTR 2+/4. No acute focal neurological deficit. Psych/Mental Status: Normal Affect, Appropriate. Assessment & Plan Assessment/Plan (1) TIA (transient ischemic attack): PLAN: Plan 49-year-old female admitted with intermittent numbness around left periorbital region for 1 week but left facial numbness about 1800 hrs. and trouble speaking on the day of admission 1. Concern of TIA versus complex migraine: Patient is being admitted in PCU. Was evaluated by teleneurologist in the ED and on the floor. Patient still has some numbness around left face. Patient was found outside window of thrombolytics with low NIH score. CT head and neck ruled out LVO. MRI brain does not show acute infarct or intracranial abnormality. 2D echo with bubble study tomorrow a.m. Lipid profile shows LDL 151, HDL 57. Glucose 146. TSH and A1c ordered for tomorrow a.m. 2. Concern of hypercoagulable disorder/lupus anticoagulant/factor V Leiden: Patient stated she remembers well that she had 2 early losses about 8 weeks and 1 she is not sure. She is also not sure about factor V Leiden or MTHFR abnormality. I agree with the neurologist recommendation of hypercoagulable workup including factor V Leyden, Antithrombin III, protein C, S, lupus anticoagulant, homocystine, factor VIII, lipoprotein a, prothrombin gene and antiphospholipid antibodies which are ordered. Venous duplex lower extremity ordered. After blood is drawn, patient started on DVT prophylaxis. ? Continue with folic acid and methotrexate DVT: SCDs, Lovenox 40 Metavir score subcu daily after blood is drawn for hypercoagulable workup. Laboratory Results 11/07/24 20:56: WBC 11.8 H, RBC 4.71, Hgb 13.7, Hct 40.7, MCV 86.4, MCH 29.1, MCHC 33.7, RDW Std Deviation 40.4, RDW Coeff of Susan 13.0, Plt Count 318, MPV 9.6, Immature Gran % (Auto) 0.400, Neut % (Auto) 51.0, Lymph % (Auto) 38.3, Cedar % (Auto) 8.1, Eos % (Auto) 1.8, Baso % (Auto) 0.4, Absolute Neuts (auto) 6.0, Absolute Lymphs (auto) 4.50, Nucleated RBC % 0, PT 12.5, INR 0.9, APTT 26.1, Sodium 137, Potassium 3.6, Chloride 101, Carbon Dioxide 23.3, Anion Gap 13, BUN 15, Creatinine 0.93, Estim Creat Clear Calc 78.53, Est GFR (MDRD) Non-Af 76, BUN/Creatinine Ratio 16.6, Glucose 122 H, Calcium 9.3, Troponin T High Sens < 6, POC Glucose 124 H 11/07/24 22:52: Troponin T Hi Sens 2 Hr < 6 11/08/24 01:53: Troponin T Hi Sens 4Hr < 6 11/08/24 05:56: WBC 7.3, RBC 4.70, Hgb 13.5, Hct 40.6, MCV 86.4, MCH 28.7, MCHC 33.3, RDW Std Deviation 39.7, RDW Coeff of Susan 12.7, Plt Count 299, MPV 9.7, Immature Gran % (Auto) 0.400, Neut % (Auto) 82.1 H, Lymph % (Auto) 16.4 L, Cedar % (Auto) 1.0, Eos % (Auto) 0.0, Baso % (Auto) 0.1, Absolute Neuts (auto) 6.0, Absolute Lymphs (auto) 1.19, Nucleated RBC % 0, Sodium 138, Potassium 4.1, Chloride 105, Carbon Dioxide 19.4 L, Anion Gap 13, BUN 14, Creatinine 0.86, Estim Creat Clear Calc 85.45, Est GFR (MDRD) Non-Af 84, BUN/Creatinine Ratio 16.7, Glucose 146 H, Calcium 9.2, Triglycerides 50, Cholesterol 218 H, LDL Cholesterol, Calc 151, VLDL Cholesterol 10, HDL Cholesterol 57, Cholesterol/HDL Ratio 3.81 Clinical Impression(s) from Imaging Studies Brain CT 11/07/24 20:57 IMPRESSION: No acute intracranial abnormality. Reading Location: [id number] Head/Neck CTA 11/07/24 21:31 IMPRESSION: No acute arterial abnormalities of the head or neck. Reading Location: [id number] Chest X-Ray 11/07/24 22:35 IMPRESSION: No acute cardiopulmonary abnormalities. Reading Location: [id number] Brain MRI 11/08/24 00:43 IMPRESSION: No acute intracranial abnormality. Reading Location: [id number] Ankle X-Ray 11/08/24 05:40 IMPRESSION: No acute osseous abnormalities. Reading Location: [id number] Charges/Coding Visit Charges Inpatient E&M: 35601 Subs Hosp L2 NIHSS NIHSS Nursing Documentation NIHSS Nursing Documentation: NIHSS: Ischemic Stroke/TIA Start: 11/08/24 00:43 Text: For PCU Patients: NIH and Neuro Check every 4 Status: Active hours, PRN and with change in RN caregiver. Freq: [id number] Protocol: Activity Type Activity Date Activity User E-sign Co-sign Detail Recorded Client Recorded Date Recorded By Document 11/08/24 04:45 MB [id number] 11/08/24 04:50 MB 11/08/24 04:45 NIH Stroke Scale [NIHSS] A score of 0 is normal or asymptomatic . Total possible score is 42. Inpatient: RN or Physician to activate a stroke alert for onset of new stroke symptoms or with NIHSS increase >/= 3 points. Following change in neurological status, NIHSS will be performed per physician order or more frequently PRN. -1a. Level of Consciousness 0 - Alert; keenly responsive -1b. LOC Questions 0 - Answers BOTH questions correctly -1c. LOC Commands 0 - Performs BOTH tasks correctly -2. Best Gaze 0 - Normal -3. Visual 0 - No visual loss -4. Facial Palsy 0 - Normal symmetrical movements -5a. Left Arm 0 - No drift; arm holds 90 ( or 45) degrees for full 10 seconds -5b. Right Arm 0 - No drift; arm holds 90 ( or 45) degrees for full 10 seconds -6a. Left Leg 0 - No drift; leg holds 30- degree position for full 5 seconds -6b. Right Leg 0 - No drift; leg holds 30- degree position for full 5 seconds -7. Limb Ataxia 0 - Absent -8. Sensory 0 - Normal; no sensory loss -9. Best Language 0 - No aphasia; normal -10. Dysarthria 0 - Normal -Total 0 Query Text:A score of 0 is normal or asymptomatic. Total possible score is 42 . ED: Notify Physician for NIHSS increase by > / = 3 points. Inpatient: RN or Physician to activate a stroke alert for NIHSS increase of > / = 3 points. Coma Scale [Assess] -Eye Opening Spontaneous -Motor Obeys Commands -Verbal Oriented [Total] -Coma Scale Total 15
[2024-11-08] MEDS: Aspirin 81 MG TAB.CHEW PO (07:46)
--- NOTE | 2024-11-08 12:07 | NEURO.CONS ---
Assessment and Plan: Neuro Assessment/Plan DELMY YATES is a 49 F with a past medical history of lupus, being evaluated by Teleneurology for L face/arm/leg numbness Diagnosis: Left face numbness - ?TIA (however patient is still reporting some L face numbness with reduced sensation to LT over the L face/arm/leg despite a negative brain MRI) vs complex migraine Plan: Outside the window for lytics. CTA with no significant arterial stenosis in head or neck, no LVO. Brain MRI was negative for acute infarct Given hx of Lupus with reported miscarriages in the past (was on LVX during her ). We recommend obtaining hypercoagulable study if not done in the past (factor V, antithrombin III, protein C,S ,lupus anticoagulant, homocystine, factor VIII, lipoprotein A, prothrombin [id number], antiphospholipid antibodies). Agree with TTE with bubble, agree with bilateral LE Duplex Continue ASA and Statin PT/OT/DISCOVERY GUIDE evaluation Normotension is the goal I personally attended this patient and spent a total time of 36 minutes evaluating this patient including clinical assessment, review of chart, medical history imaging, and determining appropriate treatment and workup. HPI Consult Data Date of Consult: 11/08/24 HPI Narrative HPI Narrative: DELMY YATES, is a 49 F with a hx of Lupus, GERD who presented with an intermittent episode of L facial numbness. The episode started about a week ago. She reported some bilateral LE swelling around her ankles (R>L). She denied any associated weakness. She said that yesterday when she went to [facility], she had some word-finding difficulties when she tried to talk. She said that she felt she was dunk. Today she is reporting some headache. Per patient, she had 5 pregnancies (2 miscarriages, 3 kids). She was told she had MTHFR mutation vs Factor V Leiden. She was started on LVX when she was but she is not currently on blood thinners. [facility] Medical History IBS (irritable bowel syndrome) Ventricular ectopy GERD (gastroesophageal reflux disease) COVID-19 (07/2020) Lupus Home Medications ?Medication ?Instructions ?Recorded ?Last Taken ?Type folic acid 1 mg tablet 1 mg PO DAILY 11/07/24 Unknown History methotrexate sodium 2.5 mg tablet 15 mg PO QWEEK 11/07/24 Unknown History Allergy/AdvReac Type Severity Reaction Status Date / Time Iodinated Contrast Media Allergy Itching Verified 11/07/24 20:53 (SALVADOR) Family History Mother Myocardial infarction, Onset Age: 72 Heart disease Grandfather Myocardial infarction, Onset Age: 55 Heart disease Uncle Myocardial infarction, Onset Age: 40 Heart disease Aunt Heart disease afib Brother CAD (coronary artery disease), Onset Age: 52 CABG Other Cancer Diabetes Hypertension Surgical History History of tonsillectomy Social History Smoking Status: Never smoker alcohol intake: never substance use type: does not use caffeine: Yes (1x week) Vital Signs Vital Signs Vital Signs: 11/07/24 20:53 11/07/24 21:08 11/07/24 21:08 Temperature 98.2 F 98.6 F Temperature Source Oral Oral Pulse Rate 101 H 90 89 Pulse Strength Respiratory Rate 18 18 17 Respiratory Effort Respiratory Depth Respiratory Pattern Blood Pressure 146/101 H 145/79 H 123/76 H Blood Pressure Mean 116 101 91 Blood Pressure Source Blood Pressure Position Blood Pressure Location Pulse Ox 100 100 100 Oxygen Delivery Method Room Air Room Air Room Air 11/07/24 21:20 11/07/24 21:30 11/07/24 21:53 Temperature Temperature Source Pulse Rate 86 81 Pulse Strength Respiratory Rate 18 15 Respiratory Effort Respiratory Depth Respiratory Pattern Blood Pressure 118/76 120/80 Blood Pressure Mean 90 93 Blood Pressure Source Blood Pressure Position Blood Pressure Location Pulse Ox 100 Oxygen Delivery Method Room Air Room Air 11/07/24 22:00 11/07/24 22:00 11/07/24 22:30 Temperature Temperature Source Pulse Rate 79 78 77 Pulse Strength Respiratory Rate 17 23 H Respiratory Effort Respiratory Depth Respiratory Pattern Blood Pressure 120/79 116/75 Blood Pressure Mean 92 88 Blood Pressure Source Blood Pressure Position Blood Pressure Location Pulse Ox 100 100 Oxygen Delivery Method Room Air Room Air 11/07/24 23:00 11/07/24 23:00 11/07/24 23:30 Temperature Temperature Source Pulse Rate 77 75 77 Pulse Strength Respiratory Rate 20 H 17 18 Respiratory Effort Respiratory Depth Respiratory Pattern Blood Pressure 106/69 106/69 109/67 Blood Pressure Mean 81 81 81 Blood Pressure Source Blood Pressure Position Blood Pressure Location Pulse Ox 98 98 Oxygen Delivery Method Room Air Room Air 11/07/24 23:52 11/08/24 00:00 11/08/24 00:00 Temperature 98.6 F Temperature Source Pulse Rate 75 80 Pulse Strength Respiratory Rate 17 19 H Respiratory Effort Respiratory Depth Respiratory Pattern Blood Pressure 106/69 108/70 108/70 Blood Pressure Mean 81 82 82 Blood Pressure Source Blood Pressure Position Blood Pressure Location Pulse Ox 98 96 Oxygen Delivery Method Room Air 11/08/24 00:45 11/08/24 01:20 11/08/24 01:33 Temperature 96.6 F L Temperature Source Temporal Pulse Rate 71 Pulse Strength Respiratory Rate 18 Respiratory Effort Normal Respiratory Depth Normal Respiratory Pattern Normal Blood Pressure 119/67 Blood Pressure Mean 84 Blood Pressure Source Monitor Blood Pressure Position Semi-Fowlers Blood Pressure Location Left Arm Pulse Ox 98 99 Oxygen Delivery Method Room Air Room Air 11/08/24 04:45 11/08/24 07:25 11/08/24 08:00 Temperature 97.0 F L Temperature Source Temporal Pulse Rate 81 Pulse Strength Normal (2+) Respiratory Rate 18 Respiratory Effort Respiratory Depth Respiratory Pattern Blood Pressure 105/70 Blood Pressure Mean 81 Blood Pressure Source Monitor Blood Pressure Position Semi-Fowlers Blood Pressure Location Left Arm Pulse Ox 95 96 Oxygen Delivery Method Room Air Room Air 11/08/24 08:45 Temperature 97.8 F Temperature Source Oral Pulse Rate 81 Pulse Strength Respiratory Rate 16 Respiratory Effort Respiratory Depth Respiratory Pattern Blood Pressure 128/71 H Blood Pressure Mean 90 Blood Pressure Source Monitor Blood Pressure Position Semi-Fowlers Blood Pressure Location Right Arm Pulse Ox 98 Oxygen Delivery Method Room Air Weight Weight: 87.1 kg Body Mass Index (BMI) 32.9 Physical Exam Narrative Patient is awake and alert, follows commands, no drifts, sensation is reduced to LT over the L face, arm and leg, no aphasia, no dysmetria Lab / Micro Data 11/08/24 05:56 11/08/24 05:56 Labs: Laboratory Results - last 24 hr 11/07/24 20:56: WBC 11.8 H, RBC 4.71, Hgb 13.7, Hct 40.7, MCV 86.4, MCH 29.1, MCHC 33.7, RDW Std Deviation 40.4, RDW Coeff of Susan 13.0, Plt Count 318, MPV 9.6, Immature Gran % (Auto) 0.400, Neut % (Auto) 51.0, Lymph % (Auto) 38.3, Newberry % (Auto) 8.1, Eos % (Auto) 1.8, Baso % (Auto) 0.4, Absolute Neuts (auto) 6.0, Absolute Lymphs (auto) 4.50, Nucleated RBC % 0, PT 12.5, INR 0.9, APTT 26.1, Sodium 137, Potassium 3.6, Chloride 101, Carbon Dioxide 23.3, Anion Gap 13, BUN 15, Creatinine 0.93, Estim Creat Clear Calc 78.53, Est GFR (MDRD) Non-Af 76, BUN/Creatinine Ratio 16.6, Glucose 122 H, Calcium 9.3, Troponin T High Sens < 6, POC Glucose 124 H 11/07/24 22:52: Troponin T Hi Sens 2 Hr < 6 11/08/24 01:53: Troponin T Hi Sens 4Hr < 6 11/08/24 05:56: WBC 7.3, RBC 4.70, Hgb 13.5, Hct 40.6, MCV 86.4, MCH 28.7, MCHC 33.3, RDW Std Deviation 39.7, RDW Coeff of Susan 12.7, Plt Count 299, MPV 9.7, Immature Gran % (Auto) 0.400, Neut % (Auto) 82.1 H, Lymph % (Auto) 16.4 L, Newberry % (Auto) 1.0, Eos % (Auto) 0.0, Baso % (Auto) 0.1, Absolute Neuts (auto) 6.0, Absolute Lymphs (auto) 1.19, Nucleated RBC % 0, Sodium 138, Potassium 4.1, Chloride 105, Carbon Dioxide 19.4 L, Anion Gap 13, BUN 14, Creatinine 0.86, Estim Creat Clear Calc 85.45, Est GFR (MDRD) Non-Af 84, BUN/Creatinine Ratio 16.7, Glucose 146 H, Calcium 9.2, Triglycerides 50, Cholesterol 218 H, LDL Cholesterol, Calc 151, VLDL Cholesterol 10, HDL Cholesterol 57, Cholesterol/HDL Ratio 3.81 Imaging Radiology Impression Brain CT 11/07/24 20:57 IMPRESSION: No acute intracranial abnormality. Reading Location: [id number] Head/Neck CTA 11/07/24 21:31 IMPRESSION: No acute arterial abnormalities of the head or neck. Reading Location: [id number] Chest X-Ray 11/07/24 22:35 IMPRESSION: No acute cardiopulmonary abnormalities. Reading Location: [id number] Brain MRI 11/08/24 00:43 IMPRESSION: No acute intracranial abnormality. Reading Location: [id number] Active Medications Active Medications Active Medications: Current Medications Generic Name Dose Route Start Last Admin Trade Name Freq PRN Reason Stop Dose Admin Aspirin 81 mg 11/08/24 08:00 11/08/24 07:46 Aspirin 81 Mg Tab.Chew PO 81 mg BREAKFAST STUART Administration Atorvastatin Calcium 80 mg 11/08/24 22:00 Atorvastatin Calcium 80 Mg Tablet PO QHS STUART Hydralazine HCl 5 mg 11/08/24 00:43 Hydralazine 20 Mg/Ml Vial IV 11/09/24 00:43 Q30M PRN maintain BP parameters with HR <60 Sodium Chloride 250 mls @ 15 mls/hr 11/08/24 00:47 IV .[id number] PRN Saline Flush Sodium Chloride 250 mls @ 15 mls/hr 11/08/24 00:47 IV .[id number] PRN Additional IVPB Infusion Labetalol HCl 10 - 20 mg 11/08/24 00:43 Labetalol 20 Mg/4 Ml Vial IV 11/09/24 00:43 Q10M PRN PRN maintain BP parameters with HR >/=60 Sodium Chloride 10 - 40 ml 11/08/24 00:47 0.9% Saline Lock 10 Ml Syringe IV UD PRN SALINE FLUSH NIHSS NIHSS Nursing Documentation NIHSS Nursing Documentation: NIHSS: Ischemic Stroke/TIA Start: 11/08/24 00:43 Text: For PCU Patients: NIH and Neuro Check every 4 Status: Active hours, PRN and with change in RN caregiver. Freq: [id number] Protocol: Activity Type Activity Date Activity User E-sign Co-sign Detail Recorded Client Recorded Date Recorded By Document 11/08/24 08:45 SANTINO [id number] 11/08/24 11:19 SANTINO 11/08/24 08:45 NIH Stroke Scale [NIHSS] A score of 0 is normal or asymptomatic . Total possible score is 42. Inpatient: RN or Physician to activate a stroke alert for onset of new stroke symptoms or with NIHSS increase >/= 3 points. Following change in neurological status, NIHSS will be performed per physician order or more frequently PRN. -1a. Level of Consciousness 0 - Alert; keenly responsive -1b. LOC Questions 0 - Answers BOTH questions correctly -1c. LOC Commands 0 - Performs BOTH tasks correctly -2. Best Gaze 0 - Normal -3. Visual 0 - No visual loss -4. Facial Palsy 0 - Normal symmetrical movements -5a. Left Arm 0 - No drift; arm holds 90 ( or 45) degrees for full 10 seconds -5b. Right Arm 0 - No drift; arm holds 90 ( or 45) degrees for full 10 seconds -6a. Left Leg 0 - No drift; leg holds 30- degree position for full 5 seconds -6b. Right Leg 0 - No drift; leg holds 30- degree position for full 5 seconds -7. Limb Ataxia 0 - Absent -8. Sensory 1 - Mild-to- moderate sensory loss; -9. Best Language 0 - No aphasia; normal -10. Dysarthria 0 - Normal -11. Extinction and Inattention 0 - No abnormality -Total 1 Query Text:A score of 0 is normal or asymptomatic. Total possible score is 42 . ED: Notify Physician for NIHSS increase by > / = 3 points. Inpatient: RN or Physician to activate a stroke alert for NIHSS increase of > / = 3 points. Coma Scale [Assess] -Eye Opening Spontaneous -Motor Obeys Commands -Verbal Oriented [Total] -Coma Scale Total 15 NIHSS 1a. Level of Consciousness: 0 - Alert; keenly responsive 1b. LOC Questions: 0 - Answers BOTH questions correctly 1c. LOC Commands: 0 - Performs BOTH tasks correctly 2. Best Gaze: 0 - Normal 3. Visual: 0 - No visual loss 4. Facial Palsy: 0 - Normal symmetrical movements 5a. Left Arm: 0 - No drift; arm holds 90 (or 45) degrees for full 10 seconds 5b. Right Arm: 0 - No drift; arm holds 90 (or 45) degrees for full 10 seconds 6a. Left Le - No drift; leg holds 30-degree position for full 5 seconds 6b. Right Le - No drift; leg holds 30-degree position for full 5 seconds 7. Limb Ataxia: 0 - Absent 8. Sensory: 1 - [id number] sensory loss; 9. Best Language: 0 - No aphasia; normal 11. Extinction and Inattention: 0 - No abnormality Total: 1
[2024-11-08] MEDS: Folic Acid 1 MG Tablet PO (17:24)
[2024-11-08] MEDS: 0.9% Saline Lock 10 ML Syringe IV (22:15)
[2024-11-08] MEDS: Atorvastatin Calcium 80 MG Tablet PO (22:15)
[2024-11-09 04:00] VITALS: BP 103/68; PULSE 68; RESP 16; TEMP 36.6; O2SAT 97
--- NOTE | 2024-11-09 05:55 | ECHOD_ITS ---
Reason For Study Reason For Study: TIA/CVA Procedure This was a 2D Doppler, Color Flow transthoracic echocardiogram. Exam performed portable in patient room. Left Ventricle Normal size and thickness. The LV systolic function is normal. EF is 65 %. No evidence for diastolic dysfunction. Right Ventricle Normal right ventricle. Atria The left and right atria are normal. Bubble contrast study is negative for PFO/ASD. Mitral Valve Trivial mitral valve insufficiency. Tricuspid Valve Trivial tricuspid valve insufficiency. Normal pulmonary artery pressure. Aortic Valve Trisinus/trileaflet aortic valve. Pulmonic Valve The pulmonic valve is not well visualized. Trivial pulmonic valve insufficiency. Great Vessels Normal sized aortic root. Pericardium/Pleural No pericardial effusion. Medication Performed a rapid injection of agitated mix of 9 cc saline and 1cc air to assess for atrial septal defect. MMode/2D Measurements & Calculations LVIDd: 4.3 cm IVSd: 1.0 cm LVOT diam: 2.0 cm LVIDs: 2.8 cm LVPWd: 1.0 cm RVDd: 3.0 cm FS: 34.9 % LVOT area: 3.0 cm2 Ao root diam: 3.0 cm LAV(MOD-bp): 36.2 ml LVAd ap4: 24.6 cm2 LAV(MOD-bp) Indexed: 18.8 ml/m2 LVLd ap4: 7.7 cm LAV(MOD-sp2): 35.0 ml EDV(MOD-sp4): 65.9 ml LAV(MOD-sp4): 33.8 ml EDV(sp4-el): 66.9 ml LVAs ap4: 11.7 cm2 LVLs ap4: 6.8 cm ESV(MOD-sp4): 19.1 ml ESV(sp4-el): 17.0 ml EF(MOD-sp4): 71.0 % EF(sp4-el): 74.6 % SV(MOD-sp4): 46.8 ml SV(sp4-el): 49.9 ml LA A4 area: 15.2 cm2 SI(MOD-sp4): 24.3 ml/m2 LA dimension(2D): 3.7 cm RA A4 area: 11.5 cm2 Time Measurements MV dec time: 0.12 sec Doppler Measurements & Calculations MV E max niall: 52.7 cm/sec Lat Peak E' Niall: 14.1 cm/sec Med Peak E' Niall: 10.3 cm/sec MV A max niall: 50.6 cm/sec E/E' lat: 3.7 E/E' med: 5.1 MV E/A: 1.0 MV dec slope: 466.2 cm/sec2 Ao V2 max: 137.8 cm/sec LV V1 max: 123.0 cm/sec Ao max P.6 mmHg LV V1 max P.1 mmHg Ao V2 mean: 96.3 cm/sec LV V1 mean P.4 mmHg Ao mean P.2 mmHg LV V1 mean: 87.4 cm/sec Ao V2 VTI: 29.9 cm LV V1 VTI: 27.8 cm AV (velocity ratio): 0.93 FAINA(I,D): 2.8 cm2 FAINA(V,D): 2.7 cm2 SV(LVOT): 84.3 ml PA V2 max: 129.5 cm/sec TR max niall: 207.5 cm/sec PA V2 mean: 84.8 cm/sec TR max P.2 mmHg ECHO/Echo Complete Interpretation Summary The LV systolic function is normal. EF is 65 %. No evidence for diastolic dysfunction. Bubble contrast study is negative for PFO/ASD. Ordering Physician: David Diamond Referring Physician: MARTIR WILLIAMSON Performed By: Tosin Maciel RCS
[2024-11-09 06:17] LABS: Hemoglobin A1c 5.5 % (<=5.6)
[2024-11-09 07:00] VITALS: PULSE 67
[2024-11-09 07:09] VITALS: O2SAT 95
[2024-11-09 09:00] VITALS: BP 104/70; PULSE 72; RESP 16; TEMP 36.6; O2SAT 97
--- NOTE | 2024-11-09 09:13 | PCM.PN.HOSP ---
Reason for Visit Reason for Visit: Diagnoses Transient cerebral ischemic attack, unspecified (11/07/24) Subjective Subjective Still with left facial paresthesias. Objective Data Objective Data Vital Signs: Vital Signs Temp Pulse Resp BP Pulse Ox O2 Del Method 36.6 C 68 16 103/68 97 Room Air 11/09/24 04:00 11/09/24 04:00 11/09/24 04:00 11/09/24 04:00 11/09/24 04:00 11/09/24 04:10 Oxygen Delivery Method Room Air Weight: 87.1 kg Body Mass Index (BMI) 32.9 Intake & Output: Intake and Output for Last 24 Hours 11/07/24 11/08/24 11/09/24 23:59 23:59 23:59 Intake Total 740 / 860 120 / 120 Output Total 0 / 0 100 / 100 Balance 740 / 860 20 / 20 Lab / Micro Data 11/08/24 05:56 11/08/24 05:56 Labs: Laboratory Results - last 24 hr 11/09/24 05:25: Hemoglobin A1c 5.5, TSH 2.060 Radiography Diagnostic Testing: Radiology Impression Brain MRI 11/08/24 00:43 IMPRESSION: No acute intracranial abnormality. Reading Location: [place] [address] Ankle X-Ray 11/08/24 05:40 IMPRESSION: No acute osseous abnormalities. Reading Location: [place] [address] Physical Exam Const alert and no apparent distress HEENT head/scalp atraumatic and moist oral mucous membranes Resp normal respiratory effort, no retractions, no use of accessory muscles and clear to auscultation bilaterally Cardio regular rate, regular rhythm, S1 normal heart sound and S2 normal heart sound GI normal to inspection, nondistended, normoactive bowel sounds and soft to palpation Neuro moves all extremities, no focal motor deficits and no sensory deficits noted Sensorium / Orientation: awake and alert Coordination / Balance: [id number] test normal Assessment & Plan Assessment/Plan (1) Left facial numbness: PLAN: TIA/CVA v atypical migraine v psychosomatic MRI brain negative. Echo negative for PFO. on ASA, HIS hypercoagulable panel ordered, results pending. Patient is currently w/o insurance. Recommended she follow up with [facility] then further referral to neurology. PLAN: Plan SLE: continue MTX
[2024-11-09] MEDS: Aspirin 81 MG TAB.CHEW PO (09:14)
[2024-11-09] MEDS: Folic Acid 1 MG Tablet PO (09:15)
--- NOTE | 2024-11-09 11:05 | CASEMGMT ---
RN CM Face to Face with patient for initial transition planning/care coordination assessment. RN CM introduced self and role at [facility]. Patient lying in bed, alert and oriented. Patient willing to participate in assessment and is able to answer all questions appropriately. Care providers, pharmacy, and demographics verified. Strata: 2 PCP: Reuben Specialists: RA at [facility] Preferred Pharmacy: [facility] Insurance: none Prescription Benefit: none Living Will/HPOA: none LNOK: son Living Arrangements: Pateint lives with 3 children (25yo, 16 yo, and 15yo) in a single story home with 3 steps to enter. Patient is independent at home. Transportation: self, daughter DME/HHC: Patient denies DME, no previous HHC or SNF Patient wishes to discharge home, denies need for home health at this time. Patient states she has no further needs or concerns at this time. CM to follow for discharge planning needs that may arise. Disposition Plan: Patient to discharge home with family support and follow-up plans in place. Shannan MCMULLEN, RN, CM
--- NOTE | 2024-11-09 11:45 | CASEMGMT ---
Social Work [facility] completed, resources given for self pay including [employer], prescription assistance, [facility], [facility] resources, [facility] assist, Medicaid application. SW also gave pt [employer] card for food resources, and utility assistance information from [employer]. Pt states she does not have insurance as it is too expensive, though she does qualify for insurance through her employer. MATTHEW did call Rama from [employer] and she will come see pt, SW let pt know. SW remains available for any additional resources. CHAU Talbert
--- NOTE | 2024-11-09 12:10 | CASEMGMT ---
Social Work PHQ-9 not completed as stroke was ruled out. CHAU Talbert
[2024-11-09 12:42] VITALS: BMI 32.9
--- NOTE | 2024-11-09 15:28 | DS.PCM_ITS ---
Providers Date of Admission: 11/07/24 Primary Care Physician: CLEMENTE Weaver Consultations 11/08/24 00:43 Consult: Tele-Neurology Routine Consulting Provider: [facility] Reason for Consult: Acute Ischemic Stroke/TIA EMERGENT Consult: No MD Notified: Yes Date Notified: 11/08/24 Time Notified: 01:29 Method of Notification: Answering Service Nursing Unit Staff Notify [facility] of Tele-Neurology Consult: Yes Reason For Visit: CVA Diagnosis Discharge Diagnosis (1) Left facial numbness: Status: Acute Code(s): R20.0 - Anesthesia of skin Plan: TIA/CVA v atypical migraine v psychosomatic MRI brain negative. Echo negative for PFO. on ASA, HIS hypercoagulable panel ordered, results pending. Patient is currently w/o insurance. Recommended she follow up with [facility] then further referral to neurology. Plan SLE: continue MTX Medications at Discharge Home Medications folic acid 1 mg tablet 1 mg PO DAILY 11/07/24 methotrexate sodium 2.5 mg tablet 15 mg PO QWEEK 11/07/24 aspirin 81 mg chewable tablet 81 mg PO BREAKFAST #0 tabs 11/09/24 atorvastatin 80 mg tablet 80 mg PO QHS #30 tabs 11/09/24 Hospital Course Operations None Procedures 2-D Echocardiogram Summary of Care Provided Minutes Spent on Discharge: 32 Hospital Course: Patient presents with left-sided paresthesias. CTA of the head neck and brain MRI were negative. Patient was seen by [facility] recommended hypercoagulable workup given history of lupus and history of miscarriages. TTE did not show any PFO though the patient reports some history of that a prior echocardiogram. Patient will continue with aspirin and high intensity statin. Patient states that she does not currently have insurance. Recommended she follow-up to [facility] and then further referral to outpatient neurology. Weight / BMI Weight Weight: 87.1 kg Body Mass Index (BMI) 32.9 ABG / Lab / Microbiology Data 11/08/24 05:56 11/08/24 05:56 Laboratory: Laboratory Results - last 24 hr 11/09/24 05:25: Hemoglobin A1c 5.5, TSH 2.060 Radiography Diagnostic Testing: Radiology Impression Echocardiogram 11/09/24 05:55 Interpretation Summary The LV systolic function is normal. EF is 65 %. No evidence for diastolic dysfunction. Bubble contrast study is negative for PFO/ASD. Ordering Physician: David Diamond Referring Physician: MARTIR WILLIAMSON Performed By: Tosin Maciel RCS D/C Instructions Discharge Diet: No restrictions DC O2, CPAP, BIPAP Needs Home O2 Discharge instructions: No Meaningful Use Info Meaningful Use Meaningful Use Diagnoses (Choose all that apply): Ischemic CVA CVA Therapy Assessed for PT,OT and/or ST?: Yes Ischemic Stroke Antithrombotic order at d/c?: Yes Dx of Atrial fib/flutter?: No Anticoagulant at discharge?: No Reason anticoagulant not ordered: Treatment not Indicated Statin Dosing Therapy Reference: STATIN DOSE THERAPY REFERENCE: * Patients > 75 years receive moderate or high dose statin therapy. * Patients 75 years or YOUNGER should receive HIGH intensity statin dose unless contraindicated. You will be required to document reason for non-treatment if statin daily dose does not meet guidelines. HIGH DOSE STATIN THERAPY DAILY Atorvastatin > than or = to 40 mg Rosuvastatin > than or = to 20 mg Amlodipine + Atorvastatin > than or = to 2.5/40 mg Ezetimibe + Simvastatin 10/80 mg Simvastatin 80mg Statins at discharge?: Yes If patient is 75 or younger, pt will be discharged on HIGH intensity statin.: Y es Primary Dx Acute Ischemic CVA?: Yes IV thrombolytic ordered during stay?: No Reason IV thrombolytic not ordered: Treatment not Indicated Discharge Plan Admission Admit Date/Time: 11/07/24 23:05 Primary Reason for Your Visit: Left face numbness Attending Provider: Napoleon Buenrostro Primary Care Provider: Martir Williamson Consulting Providers: Bhavin Dooley; Shantell Choudhary; Yvonne Alva; Julissa Rush; Fabi Harmon; Cruz Us; Margarita Muse; Alexandre Howard; Gal Agarwal; Santana Thornton; Jayda Sams; Harjit Tee; Tina Lepe; Krissy Phillips; Matias Ferrell; Mariano Loza; Zo Velarde; Davi Hart; Soila Fajardo; Darius Tapia; Mack Bai; David Diamond Instructions Additional Instructions / Restrictions: Etiology of your patient numbness is unclear possibly could be a small stroke that was not seen on any of the imaging versus atypical migraine. Please follow-up at the [facility] and outpatient neurology. You may follow up with Dr. An[facility] or [facility] [phone]. [facility] [phone]. [facility] [phone]. [facility] [phone]. [facility] [place] [phone] Discharge Orders/Prescriptions Prescriptions: New atorvastatin 80 mg Tablet 80 mg PO QHS Qty: 30 0RF aspirin 81 mg Tablet,Chewable 81 mg PO BREAKFAST Qty: 0 0RF Continued methotrexate sodium 2.5 mg tablet 15 mg PO QWEEK folic acid 1 mg tablet 1 mg PO DAILY Referrals / Follow Up: Martir Williamson NP-C [Primary Care Provider] - Within 2 Weeks Disposition Disposition (needs filled in before D/C Order can be placed): Home, Self Care Charges/Coding Visit Charges Inpatient E&M: 14219 Disch Hosp >30min
[2024-11-09 15:58] VITALS: BP 113/72; PULSE 78; RESP 16; TEMP 36.6; O2SAT 98
--- NOTE | 2024-11-09 16:18 | PHA.DC.MR.R ---
Pharmacy [place] Med Reconciliation Pharmacy Service has performed discharge medication reconciliation for this patient. Medication education papers prepared, patient discharged when counseling was attempted. Medications reviewed. The patient's discharge medication list was reviewed for discrepancies and discrepancies were resolved. Medications at Discharge Home Medications folic acid 1 mg tablet 1 mg PO DAILY 11/07/24 methotrexate sodium 2.5 mg tablet 15 mg PO QWEEK 11/07/24 aspirin 81 mg chewable tablet 81 mg PO BREAKFAST #0 tabs 11/09/24 atorvastatin 80 mg tablet 80 mg PO QHS #30 tabs 11/09/24
[2024-11-10 05:07] LABS: HOMOCYSTEINE 10.2 umol/L (0.0-14.5)
[2024-11-10 11:08] LABS: Factor VIII Activity 126 % (56-140)
[2024-11-10 13:08] LABS: Dilute Prothrombin Time (dPT) 34.4 sec (0.0-47.6); Dilute Russell Viper Venom 32.1 sec (0.0-47.0); Interpretation Comment: (.); PTT-LA 31.8 sec (0.0-43.5); Thrombin Time 21.6 sec (0.0-23.0); dPT Confirm Ratio 1.06 Ratio (0.00-1.34)
[2024-11-13 17:08] LABS: Anti-Cardiolipin Ab, IgG, Qn 10 GPL U/mL (0-14); Anti-Cardiolipin Ab, IgM, Qn < 9 MPL U/mL (0-12); Anti-Thrombin 3 AG, Immunol 86 % (72-124); Antithrombin 3 Function 92 % (75-135); Beta-2-Glycoprotein I IgA <9 (0-25); Beta-2-Glycoprotein I IgG <9 (0-20); Beta-2-Glycoprotein I IgM <9 (0-32); Lipoprotein A 34.8 nmol/L (<75.0); Protein C Antigen 124 % (60-150); Protein C, Functional 123 % (73-180); Protein S, Free 105 % (61-136); Protein S, Funtional 89 % (63-140); Protein S, Total 81 % (60-150)
== END 2024-11-09 16:13 | disposition home or self-care (01) | DRG 69 ==
LOC: ED 23:23 → PCU 11-08 01:21
PROVIDERS: Internal Medicine; Admitting Provider Family Medicine; Emergency Provider Emergency Medicine; PCP Nurse Practitioner Family
DX: G45.9 Transient cerebral ischemic attack, unspecified (principal); D68.51 Activated protein C resistance; M32.9 Systemic lupus erythematosus, unspecified; K21.9 Gastro-esophageal reflux disease without esophagitis; K58.9 Irritable bowel syndrome, unspecified; Z79.82 Long term (current) use of aspirin; Z86.16 Personal history of COVID-19; Z79.02 Long term (current) use of antithrombotics/antiplatelets; I49.3 Ventricular premature depolarization; Z91.041 Radiographic dye allergy status; R20.0 Anesthesia of skin
CPT/HCPCS: 36415; 70450; 70496; 70498; 70551; 71045; 73610; 80048; 80061; 81240; 81241; 82962; 83036; 83090; 83695; 84443; 84484; 85025; 85240; 85300; 85301; 85302; 85303; 85305; 85306; 85610; 85730; 86146; 86147; 92523; 93005; 93306; 93971; 94762; 97161; 97165; 97802; 99285; Q9957; Q9967; A4216